=== PATIENT | female | born 1970 | race American Indian/Alaskan Native ===

== ENCOUNTER 2017-04-21 19:32 | Emergency (ER) | payer SELFPAY ==
[2017-04-21 20:22] LABS: BILIRUBIN,URINE NEGATIVE (NEGATIVE)
[2017-04-21 20:25] LABS: BASOPHILS # (AUTO) 0.1 10^3/uL (0.0-0.1); BASOPHILS % (AUTO) 1.2 %; EOSINOPHILS # (AUTO) 0.1 10^3/uL (0.0-0.7); EOSINOPHILS % (AUTO) 0.5 %; HCT - HEMATOCRIT 35.5 % (37.0-47.0); HGB - HEMOGLOBIN 11.5 g/dL (12.0-16.0); LYMPHOCYTES # (AUTO) 2.5 10^3/uL (1.5-3.5); LYMPHOCYTES % (AUTO) 26.3 %; MEAN CORPUSCULAR HEMOGLOBIN 26.3 pg (27.0-31.0); MEAN CORPUSCULAR HGB CONC 32.3 g/dL (32.0-36.0); MEAN CORPUSCULAR VOLUME 81.5 fL (81.0-99.0); MEAN PLATELET VOLUME 6.5 fL (7.9-10.8); MONOCYTES # (AUTO) 0.8 10^3/uL (0.0-1.0); MONOCYTES % (AUTO) 8.7 %; NEUTROPHILS # (AUTO) 5.9 10^3/uL (1.5-6.6); NEUTROPHILS % (AUTO) 63.3 %; RED BLOOD COUNT 4.35 10^6/uL (4.20-5.40); RED CELL DISTRIBUTION WIDTH 18.2 % (12.0-15.0); UNCORRECTED WHITE BLOOD COUNT 9.3 x10^3/uL; WHITE BLOOD COUNT 9.3 x10^3/uL (4.8-10.8)
[2017-04-21 20:33] LABS: UA w/ MICROSCOPIC CHARGE YES
[2017-04-21 20:34] LABS: UR CULTURE IF IND NOT INDICATED; WBC,URINE 0-3 /HPF (0-5)
[2017-04-21 20:42] LABS: ACETAMINOPHEN < 10 ug/mL (10-30); ALBUMIN/GLOBULIN RATIO 1.1 (1.0-2.2); BILIRUBIN,TOTAL 0.2 mg/dL (0.2-1.0); BUN - BLOOD UREA NITROGEN 9 mg/dL (6-20); CALCIUM 8.7 mg/dL (8.5-10.3); CARBON DIOXIDE - CO2 23 mmol/L (21-32); CHLORIDE 104 mmol/L (101-111); CREATININE 0.7 mg/dL (0.4-1.0); GFR - MDRD 90 (>89); GLUCOSE 114 mg/dL (70-100); LIPASE 36 U/L (22-51); POTASSIUM 3.3 mmol/L (3.5-5.0); SALICYLATE < 6.0 mg/dL; SODIUM 140 mmol/L (135-145); TOTAL PROTEIN 7.3 g/dL (6.7-8.2)
--- NOTE | 2017-04-22 06:16 | ED Physician Documentation ---
PD HPI MHE - Stated complaint Stated Complaint: SI - Chief complaint Chief Complaint: MHE - History obtained from History obtained from: Patient - History of Present Illness Primary symptom: Suicidal ideation, Suicide attempt, Self harm - other Timing - onset: Today Contributing factors: Family, Sig other, Substance abuse - ETOH Similar symptoms before: Has not had sx before Recently seen: Not recently seen - Additional information Additional information: Patient is a 46 year old female with no significant past medical history who was brought to the emergency department by police for suicide attempt. Patient attempted to hang herself but it hurt so she stopped. Patient stated that her boyfriend had guns in his house and she would find them. Patient did admit to drinking. Review of Systems Unable to obtain: Intoxicated, Uncooperative PD PAST MEDICAL HISTORY - Past Medical History Past Medical History: Yes Other Past Medical History: patient refused to share - Past Surgical History Past Surgical History: Yes - Social History Does the pt smoke?: No Does the pt drink ETOH?: Yes Does the pt have substance abuse?: No - Immunizations Immunizations are current?: Yes - POLST Patient has POLST: No PD ED PE NORMAL - Vitals Vital signs reviewed: Yes - HEENT HEENT: Atraumatic, PERRL - Neck Neck: Supple, no meningeal sign, Other (no signs of neck trauma) - Cardiac Cardiac: RRR, No murmur - Respiratory Respiratory: No respiratory distress - Abdomen Abdomen: Non distended - Derm Derm: Normal color, Warm and dry - Extremities Extremities: No deformity, No edema - Neuro Neuro: No motor deficit, No sensory deficit Eye Opening: Spontaneous Motor: Obeys Commands Verbal: Oriented GCS Score: 15 PD ED PE EXPANDED - General General: Alert, Other (mildly intoxicated) - Psych Psych: Intoxicated / AOB, Depressed, Suicidal, Combative Results - Vitals Vitals: Vital Signs - 24 hr 04/21/17 04/21/17 04/22/17 19:34 20:24 06:31 Temperature 36.8 C 36.5 C Heart Rate 108 H 88 82 Respiratory 18 16 18 Rate Blood Pressure 130/81 H 146/91 H 120/82 H O2 Saturation 96 98 100 Oxygen O2 Source Room air - Labs Labs: Laboratory Tests 04/21/17 04/21/17 04/21/17 20:15 20:18 20:18 WBC 9.3 RBC 4.35 Hgb 11.5 L Hct 35.5 L MCV 81.5 MCH 26.3 L MCHC 32.3 RDW 18.2 H Plt Count 388 MPV 6.5 L Neut # 5.9 Lymph # 2.5 [facility] # 0.8 Eos # 0.1 Baso # 0.1 Absolute Nucleated RBC 0.00 Nucleated RBC % 0.0 Sodium 140 Potassium 3.3 L Chloride 104 Carbon Dioxide 23 Anion Gap 13.0 BUN 9 Creatinine 0.7 Estimated GFR (MDRD) 90 Glucose 114 H Calcium 8.7 Total Bilirubin 0.2 AST 19 ALT 19 Alkaline Phosphatase 128 H Total Protein 7.3 Albumin 3.8 Globulin 3.5 Albumin/Globulin Ratio 1.1 Lipase 36 TSH HCG, Quant Urine Color YELLOW Urine Clarity HAZY Urine pH 6.0 Ur Specific [place] <=1.005 Urine Protein NEGATIVE Urine Glucose (UA) NEGATIVE Urine Ketones NEGATIVE Urine Occult Blood TRACE-INTA Urine Nitrite POSITIVE H Urine Bilirubin NEGATIVE Urine Urobilinogen 0.2 (NORMAL) Ur Leukocyte Esterase NEGATIVE Urine RBC None Seen Urine WBC 0-3 Ur Squamous Epith Cells MANY Squamous H Urine Bacteria Many H Ur Microscopic Review INDICATED Urine Culture Comments NOT INDICATED Salicylates < 6.0 Urine Opiates Screen NEGATIVE Ur Oxycodone Screen NEGATIVE Urine Methadone Screen NEGATIVE Ur Propoxyphene Screen NEGATIVE Acetaminophen < 10 L Ur Barbiturates Screen NEGATIVE Ur Tricyclics Screen NEGATIVE Ur Phencyclidine Scrn NEGATIVE Ur Amphetamine Screen NEGATIVE U Methamphetamines Scrn NEGATIVE U Benzodiazepines Scrn NEGATIVE Urine Cocaine Screen NEGATIVE U Cannabinoids Screen NEGATIVE Ethyl Alcohol 241.7 04/21/17 04/21/17 04/22/17 20:18 20:18 03:06 WBC RBC Hgb Hct MCV MCH MCHC RDW Plt Count MPV Neut # Lymph # [facility] # Eos # Baso # Absolute Nucleated RBC Nucleated RBC % Sodium Potassium Chloride Carbon Dioxide Anion Gap BUN Creatinine Estimated GFR (MDRD) Glucose Calcium Total Bilirubin AST ALT Alkaline Phosphatase Total Protein Albumin Globulin Albumin/Globulin Ratio Lipase TSH 0.59 HCG, Quant 0.69 Urine Color Urine Clarity Urine pH Ur Specific [place] Urine Protein Urine Glucose (UA) Urine Ketones Urine Occult Blood Urine Nitrite Urine Bilirubin Urine Urobilinogen Ur Leukocyte Esterase Urine RBC Urine WBC Ur Squamous Epith Cells Urine Bacteria Ur Microscopic Review Urine Culture Comments Salicylates Urine Opiates Screen Ur Oxycodone Screen Urine Methadone Screen Ur Propoxyphene Screen Acetaminophen Ur Barbiturates Screen Ur Tricyclics Screen Ur Phencyclidine Scrn Ur Amphetamine Screen U Methamphetamines Scrn U Benzodiazepines Scrn Urine Cocaine Screen U Cannabinoids Screen Ethyl Alcohol < 5.0 PD MEDICAL DECISION MAKING - ED course Complexity details: reviewed old records, reviewed results, re-evaluated patient , considered differential, d/w patient, d/w beauty sales consultant ED course: Patient was seen and examined at bedside. labs were drawn and urine was collected. Patient was found to have elevated etoh. Patient was given time to metabolize the alcohol. [facility] was dispatched and came to evaluate the patient. after they evaluated the patient they were able to make a safety plan. Patient' s boyfriend was able to come get the patient. Patient went home in stable condition. Departure - Departure Disposition: 01 Home, Self Care Clinical Impression: Depression Condition: Good Instructions: ED Stress React Follow-Up: primary,care provider [Other] Comments: It is important that you follow up with the therapists listed today. You should refrain from drinking as it can exacerbate depression. You should return to the emergency department at any time if you have any feelings of hurting yourself or hurting anyone else.
[2017-04-22 06:31] VITALS: BP 120/82
== END 2017-04-22 06:31 | disposition home or self-care (01) ==
LOC: EDBD → ED 19:32
DX: F32.9 Major depressive disorder, single episode, unspecified (principal); R45.851 Suicidal ideations; Z72.89 Other problems related to lifestyle
CPT/HCPCS: 36415; 80053; 80306; 80307; 80320; 80329; 81001; 81003; 83690; 84443; 84702; 85025; 87086; 99283; 99285

== ENCOUNTER 2017-05-29 18:02 | Outpatient (CLI) | payer OTHER | END 2017-05-29 18:03 | disposition home or self-care (01) | LOC: EMS 18:02 | PROVIDERS: ATTEND Surgery | DX: R11.2 Nausea with vomiting, unspecified (principal) | CPT/HCPCS: A0425; A0427 ==

== ENCOUNTER 2017-05-29 18:39 | Emergency (ER) | payer OTHER ==
[2017-05-29 19:20] LABS: BASOPHILS # (AUTO) 0.1 10^3/uL (0.0-0.1); BASOPHILS % (AUTO) 1.7 %; EOSINOPHILS % (AUTO) 0.4 %; HCT - HEMATOCRIT 34.1 % (37.0-47.0); HGB - HEMOGLOBIN 11.1 g/dL (12.0-16.0); LYMPHOCYTES # (AUTO) 1.8 10^3/uL (1.5-3.5); LYMPHOCYTES % (AUTO) 28.1 %; MEAN CORPUSCULAR HEMOGLOBIN 25.4 pg (27.0-31.0); MEAN CORPUSCULAR HGB CONC 32.5 g/dL (32.0-36.0); MEAN CORPUSCULAR VOLUME 78.3 fL (81.0-99.0); MONOCYTES # (AUTO) 0.6 10^3/uL (0.0-1.0); MONOCYTES % (AUTO) 9.7 %; NEUTROPHILS # (AUTO) 3.8 10^3/uL (1.5-6.6); NEUTROPHILS % (AUTO) 60.1 %; RED BLOOD COUNT 4.36 10^6/uL (4.20-5.40); RED CELL DISTRIBUTION WIDTH 17.9 % (12.0-15.0); UNCORRECTED WHITE BLOOD COUNT 6.4 x10^3/uL; WHITE BLOOD COUNT 6.4 x10^3/uL (4.8-10.8)
[2017-05-29 19:29] LABS: BILIRUBIN,URINE NEGATIVE (NEGATIVE); PH,URINE 6.5 PH (5.0-7.5); UA w/ MICROSCOPIC CHARGE YES
[2017-05-29 19:30] LABS: HCG UR QUAL NEGATIVE
[2017-05-29 19:32] LABS: BILIRUBIN,TOTAL 0.3 mg/dL (0.2-1.0); BUN - BLOOD UREA NITROGEN < 5 mg/dL (6-20); CALCIUM 8.1 mg/dL (8.5-10.3); CARBON DIOXIDE - CO2 26 mmol/L (21-32); CHLORIDE 102 mmol/L (101-111); CREATININE 0.4 mg/dL (0.4-1.0); GFR - MDRD 173 (>89); GLUCOSE 104 mg/dL (70-100); LIPASE 37 U/L (22-51); POTASSIUM 3.2 mmol/L (3.5-5.0); SODIUM 140 mmol/L (135-145); TOTAL PROTEIN 7.1 g/dL (6.7-8.2)
[2017-05-29 19:35] LABS: UR CULTURE IF IND INDICATED; WBC,URINE 0-3 /HPF (0-5)
--- NOTE | 2017-05-29 19:36 | ED Physician Documentation ---
PD HPI ABD PAIN - Stated complaint Stated Complaint: ABD PAIN - Chief complaint Chief Complaint: Abd Pain - History obtained from History obtained from: Patient - History of Present Illness Timing - onset: How many days ago (4) Timing - duration: Days (4 days of upper abd pain, nausea, with some episodic vomiting, which has gotten more consistent today. She tried to improve her symptoms with alcohol but felt worse. She does drink fairly regularly the past 2 months (had been sober for several years prior to that).) Timing - details: Gradual onset, Still present (worse today with some diarrhea as well.), Waxing and waning Quality: Cramping, Aching, Pain Location: Epigastric Radiation: Upper back Improved by: Vomiting. No: Laying still Worsened by: Eating. No: Breathing, Palpation Associated symptoms: Nausea, Vomiting, Diarrhea (today). No: Fever, Hematemesis , Melena, Hematochezia, Dysuria Similar symptoms before: Has not had sx before Recently seen: Not recently seen Review of Systems Constitutional: denies: Fever, Chills Nose: denies: Rhinorrhea / runny nose, Congestion Throat: denies: Sore throat Cardiac: denies: Chest pain / pressure, Palpitations Respiratory: denies: Cough GI: reports: Abdominal Pain, Nausea, Vomiting, Diarrhea. denies: Abdominal Swelling, Constipation, Hematemesis, Bloody / black stool : reports: Frequency. denies: Dysuria, Hematuria, Discharge Skin: denies: Rash, Lesions Neurologic: reports: Generalized weakness. denies: Focal weakness, Numbness, Near syncope Psychiatric: reports: Depressed, Anxiety. 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 HEENT: None Psych: None Musculoskeletal: Rheumatoid arthritis Derm: None - Past Surgical History Past Surgical History: Yes - Present Medications Home Medications: Ambulatory Orders Medication Instructions Recorded Confirmed Cephalexin [Keflex] 500 mg PO TID #15 capsule 05/29/17 HYDROcod/ACETAM 5/325 [[place] 5/325] 1 tab PO Q6H PRN #15 tablet 05/29/17 Ondansetron Odt [Zofran] 4 mg TL Q6H PRN #15 tablet 05/29/17 Sucralfate 1 gm PO QID #20 tablet 05/29/17 predniSONE [Deltasone] 5 mg PO DAILY 05/29/17 05/29/17 - Allergies Allergies/Adverse Reactions: Allergies Allergy/AdvReac Type Severity Reaction Status Date / Time No Known Drug Allergies Allergy Verified 05/29/17 18:46 - Social History Does the pt smoke?: No Smoking Status: Never smoker Does the pt drink ETOH?: Yes Does the pt have substance abuse?: No - Immunizations Immunizations are current?: Yes - POLST Patient has POLST: No PD ED PE NORMAL - Vitals Vital signs reviewed: Yes - General General: Alert and oriented X 3 (conversant but some circumferential thought process, slight slurring of speech, c/w some intoxication. ), No acute distress , Well developed/nourished - HEENT HEENT: Atraumatic, PERRL (nonicteric), Pharynx benign - Neck Neck: Supple, no meningeal sign, No adenopathy - Cardiac Cardiac: RRR, No murmur - Respiratory Respiratory: Clear bilaterally - Abdomen Abdomen: Normal bowel sounds, Soft, Non distended, No organomegaly, Other ( Tender upper abd with some local guarding. No general peritoneal signs. ) - Female Female : Deferred - Rectal Rectal: Deferred - Back Back: No CVA TTP - Derm Derm: Normal color, Warm and dry - Extremities Extremities: No deformity, Normal ROM s pain, No calf tenderness / cord - Neuro Neuro: Alert and oriented X 3, No motor deficit, Normal speech - Psych Psych: Normal mood Results - Vitals Vitals: Vital Signs - 24 hr 05/29/17 05/29/17 05/29/17 18:46 20:31 21:03 Temperature 37.0 C Heart Rate 107 H 102 H 90 Respiratory 18 18 18 Rate Blood Pressure 135/98 H 142/93 H 134/83 H O2 Saturation 98 98 99 05/29/17 05/29/17 05/29/17 22:39 23:27 23:30 Temperature 36.5 C 36.6 C Heart Rate 98 97 Respiratory 18 17 Rate Blood Pressure 130/82 H 139/83 H O2 Saturation 96 96 Oxygen O2 Source Room air - Labs Labs: Laboratory Tests 12/05/29/17 05/29/17 19:02 19:02 19:16 WBC 6.4 RBC 4.36 Hgb 11.1 L Hct 34.1 L MCV 78.3 L MCH 25.4 L MCHC 32.5 RDW 17.9 H Plt Count 311 MPV 7.0 L Neut # 3.8 Lymph # 1.8 [facility] # 0.6 Eos # 0.0 Baso # 0.1 Absolute Nucleated RBC 0.00 Nucleated RBC % 0.0 Sodium 140 Potassium 3.2 L Chloride 102 Carbon Dioxide 26 Anion Gap 12.0 BUN < 5 L Creatinine 0.4 Estimated GFR (MDRD) 173 Glucose 104 H Calcium 8.1 L Total Bilirubin 0.3 AST 27 ALT 25 Alkaline Phosphatase 175 H Total Protein 7.1 Albumin 3.6 Globulin 3.5 Albumin/Globulin Ratio 1.0 Lipase 37 Urine Color YELLOW Urine Clarity HAZY Urine pH 6.5 Ur Specific [place] <=1.005 Urine Protein NEGATIVE Urine Glucose (UA) NEGATIVE Urine Ketones NEGATIVE Urine Occult Blood LARGE H Urine Nitrite NEGATIVE Urine Bilirubin NEGATIVE Urine Urobilinogen 0.2 (NORMAL) Ur Leukocyte Esterase TRACE H Urine RBC 11-25 H Urine WBC 0-3 Ur Squamous Epith Cells FEW Squamous Urine Bacteria Moderate H Ur Microscopic Review INDICATED Urine Culture Comments INDICATED Urine HCG, Qual NEGATIVE Ethyl Alcohol 05/29/17 20:16 WBC RBC Hgb Hct MCV MCH MCHC RDW Plt Count MPV Neut # Lymph # [facility] # Eos # Baso # Absolute Nucleated RBC Nucleated RBC % Sodium Potassium Chloride Carbon Dioxide Anion Gap BUN Creatinine Estimated GFR (MDRD) Glucose Calcium Total Bilirubin AST ALT Alkaline Phosphatase Total Protein Albumin Globulin Albumin/Globulin Ratio Lipase Urine Color Urine Clarity Urine pH Ur Specific [place] Urine Protein Urine Glucose (UA) Urine Ketones Urine Occult Blood Urine Nitrite Urine Bilirubin Urine Urobilinogen Ur Leukocyte Esterase Urine RBC Urine WBC Ur Squamous Epith Cells Urine Bacteria Ur Microscopic Review Urine Culture Comments Urine HCG, Qual Ethyl Alcohol 228.7 - Rads (name of study) abd CT Radiology: Prelim report reviewed (hepatic steatosis noted, otherwise unremarkable abd CT.) PD MEDICAL DECISION MAKING - ED course Complexity details: reviewed results, re-evaluated patient (improved with meds and GI cocktail. Presume gastritis. Still with some upper abd tenderness. Labs are reasonable, no pancreatitis. Can get CT to ensure no obvious perforation, etc. ), considered differential, d/w patient Departure - Departure Disposition: Home, Self Care Clinical Impression: Abdominal pain Qualifiers: Abdominal location: epigastric Qualified Code(s): R10.13 - Epigastric pain Vomiting Qualifiers: Vomiting type: unspecified Vomiting Intractability: intractable Nausea presence : with nausea Qualified Code(s): R11.2 - Nausea with vomiting, unspecified Gastritis Qualifiers: Gastritis type: unspecified gastritis Chronicity: acute Gastritis bleeding: without bleeding Qualified Code(s): K29.00 - Acute gastritis without bleeding UTI (urinary tract infection) Qualifiers: Urinary tract infection type: acute cystitis Hematuria presence: without hematuria Qualified Code(s): N30.00 - Acute cystitis without hematuria Condition: Stable Record reviewed to determine appropriate education?: Yes Instructions: ED Gastritis, ED Nausea Vomiting Follow-Up: [facility] [Provider Group] [facility] [Provider Group] Prescriptions: Cephalexin [Keflex] 500 mg PO TID #15 capsule HYDROcod/ACETAM 5/325 [[place] 5/325] 1 tab PO Q6H PRN #15 tablet PRN Reason: Pain Ondansetron Odt [Zofran] 4 mg TL Q6H PRN #15 tablet PRN Reason: Nausea / Vomiting Sucralfate 1 gm PO QID #20 tablet Comments: Drink lots of fluids to stay hydrated. Zofran if needed for nausea. Tylenol or Hydrocodone as needed for pains. Continue your Omeprazole you recently started. Add Sucralfate to coat the stomach for the next 5 days. This will help protect the stomach while giving the Omeprazole more time to become effective and help. Avoid alcohol. Recheck if not improved over the next few days. There is a suggestion of a bladder infection on your urine test and we gave dose of antibiotics here. Add Keflex for this for 5 days. Discharge Date/Time: 05/29/17 23:31
[2017-05-29] MEDS ORDERED: SODIUM CHLORIDE 0.9% 1,000 ML IV ONE (20:03)
[2017-05-29] MEDS ORDERED: MAG HYDROX/AL HYDROX/SIMETH 30 ML UDC PO STA (20:04)
[2017-05-29] MEDS ORDERED: FAMOTIDINE 20 MG/50 ML 50 ML IV ONE (20:04)
[2017-05-29] MEDS ORDERED: HYDROmorphone 1 MG/ML SYRINGE IVP STA (20:04)
[2017-05-29] MEDS ORDERED: LIDOCAINE VISCOUS 2% 15 ML UDC MM STA (20:04)
[2017-05-29] MEDS ORDERED: ONDANSETRON 4 MG/2 ML VIAL IVP STA (20:05)
[2017-05-29] MEDS ORDERED: SUCRALFATE 1 GM/10 ML UDC PO STA (21:21)
[2017-05-29] MEDS ORDERED: ACETAMINOPHEN 325 MG TABLET PO STA (21:21)
[2017-05-29] MEDS ORDERED: cefTRIAXone 1 GM in SODIUM CHLORIDE 0.9% MINIBAG 100 ML IV STA (21:46)
[2017-05-29] MEDS ORDERED: IOPAMIDOL-300 100 ML VIAL ONE (22:03)
[2017-05-29] MEDS ORDERED: IOPAMIDOL-300 100 ML VIAL IVP ONE (22:17)
--- NOTE | 2017-05-29 22:46 | CT Preliminary Report ---
Exam: CT ABDOMEN/PELVIS W/ IMPRESSION: Hepatic steatosis noted, otherwise unremarkable abdomen and pelvis CT. [facility] SITE ID: [id number]
--- NOTE | 2017-05-29 22:48 | CT Report ---
EXAM: CT ABDOMEN AND PELVIS EXAM DATE: 05/29/2017 10:25 PM. CLINICAL HISTORY: Upper abdomen pain. COMPARISONS: None. TECHNIQUE: Routine helical CT imaging was performed through the abdomen and pelvis. IV contrast: 100 cc of Isovue-300. Enteric contrast: No. Reconstructions: Coronal and sagittal. In accordance with CT protocol optimization, one or more of the following dose reduction techniques w ere utilized for this exam: automated exposure control, adjustment of mA and/or KV based on patient s ize, or use of iterative reconstructive technique. FINDINGS: Lung Bases: Unremarkable. Liver: Diffuse low-density, otherwise unremarkable. Gallbladder/Bile Ducts: Unremarkable. Spleen: Normal. Pancreas: Normal. Adrenal Glands: Normal. Kidneys: Multiple bilateral subcentimeter low densities, likely cysts, otherwise unremarkable. Peritoneal Cavity/Bowel: Normal. No free fluid, free air or adenopathy. No masses or acute inflammato ry process. The appendix is well visualized and normal. Pelvic Organs: Normal. The bladder and visualized pelvic organs are within normal limits. Vasculature: No aneurysms or other significant abnormality. Bones: No significant abnormality. Other: None. IMPRESSION: Hepatic steatosis noted, otherwise unremarkable abdomen and pelvis CT. [facility] Referring Provider Line: [phone] SITE ID: [id number]
[2017-05-29] MEDS ORDERED: ONDANSETRON ODT 4 MG Prepack 2 TL PRN (23:00)
[2017-05-29] MEDS ORDERED: HYDROcod/ACET 5/325 Prepack 6 PO STA (23:00)
[2017-05-29 23:27] VITALS: BP 139/83
== END 2017-05-29 23:31 | disposition home or self-care (01) ==
LOC: EDUNIT# → ED 18:39
DX: K29.00 Acute gastritis without bleeding (principal); N30.00 Acute cystitis without hematuria; R10.13 Epigastric pain; R11.2 Nausea with vomiting, unspecified; M06.9 Rheumatoid arthritis, unspecified
CPT/HCPCS: 36415; 74177; 80053; 80320; 81001; 81025; 83690; 85025; 87086; 87181; 96365; 96367; 96375; 99284; A9270; J1170; Q9967; 81003

== ENCOUNTER 2017-12-07 17:43 | Emergency (ER) | payer MEDICAID, OTHER ==
[2017-12-07 18:25] VITALS: BP 133/118
--- NOTE | 2017-12-07 20:27 | ED Physician Documentation ---
PD HPI LOWER EXT INJURY - Stated complaint Stated Complaint: RT SIMON LAC - Chief complaint Chief Complaint: Laceration - History obtained from History obtained from: Patient - History of Present Illness PD HPI LOW EXT INJURY LOCATION: Right, Lower leg Type of injury: Blunt / blow (she accidentally struck her simon with hoe this morning doing some yardwork.) Where injury occurred: Home Timing - onset: Today (this morning) Timing - details: Abrupt onset, Still present (bleeding at times despite wrap/ dressing.) Associated symptoms: Swelling, Other (bleeding at times still.). 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 HEENT: None Psych: None Musculoskeletal: Rheumatoid arthritis Derm: None - Past Surgical History Past Surgical History: Yes - Present Medications Home Medications: Ambulatory Orders Medication Instructions Recorded Confirmed Cephalexin [Keflex] 500 mg PO TID #15 capsule 05/29/17 HYDROcod/ACETAM 5/325 [[place] 5/325] 1 tab PO Q6H PRN #15 tablet 05/29/17 Ondansetron Odt [Zofran] 4 mg TL Q6H PRN #15 tablet 05/29/17 Sucralfate 1 gm PO QID #20 tablet 05/29/17 predniSONE [Deltasone] 5 mg PO DAILY 05/29/17 05/29/17 - Allergies Allergies/Adverse Reactions: Allergies Allergy/AdvReac Type Severity Reaction Status Date / Time No Known Drug Allergies Allergy Verified 12/07/17 18:18 - Social History Does the pt smoke?: No Smoking Status: Never smoker Does the pt drink ETOH?: Yes Does the pt have substance abuse?: No - Immunizations Immunizations are current?: Yes - POLST Patient has POLST: No PD ED PE NORMAL - Vitals Vital signs reviewed: Yes - General General: Alert and oriented X 3, No acute distress, Well developed/nourished - Derm Derm: Normal color, Warm and dry - Extremities Extremities: Other (right lower leg anteriorly with v shaped laceration 3 cm in length, exposing the skin in the middle of the laceration, exposing fatty tissue but no FB nor deep tissues involved. Small venous bleeding present when dressing removed. ) - Neuro Neuro: Alert and oriented X 3, No motor deficit, No sensory deficit, Normal speech Results - Vitals Vitals: Oxygen O2 Source Room air Procedures - Laceration (location) right anterior lower leg Length in cm: 3 Wound type: Curved, Into subcut fat, Clean. No: Into muscle Neurovascular status: Sensory intact, Motor intact, Vascular intact Tendon involvement: No: Tendon Injury Anesthesia: Lidocaine 1% with epi Wound Preparation: Irrigated copiously NS Skin layer closure: Nylon, Interrupted, Size #-0 - enter number (4) Other: Patient tolerated well, No complications, Neurovascular intact, Dressing applied, Tetanus UTD Complexity: Simple PD MEDICAL DECISION MAKING - ED course Complexity details: considered differential (overly optimistic to think wound would stay closed with glue/steri-strips, so went with suturing. Patient okay with that. ), d/w patient - Sepsis Event Vital Signs: Oxygen O2 Source Room air Departure - Departure Disposition: 01 Home, Self Care Clinical Impression: Laceration of lower leg Qualifiers: Encounter type: initial encounter Laterality: right Qualified Code(s): S81.811A - Laceration without foreign body, right lower leg, initial encounter Condition: Stable Record reviewed to determine appropriate education?: Yes Instructions: ED Laceration All Follow-Up: Abelardo Johansen MD [Primary Care Provider] - Comments: It is okay to wash and shower. Clean off the wound twice a day with soap and water, or peroxide and water. Apply some antibiotic ointment to it to keep it moist. Also to watch for signs of infection such as purulence, redness or increasing pain. Return to your primary care or the ER at the specified time for suture removal. Tylenol or ibuprofen if needed for pain. Suture removal 8- 10 days. Discharge Date/Time: 12/07/17 21:10
[2017-12-07] MEDS ORDERED: IBUPROFEN 600 MG TABLET PO STA (20:52)
== END 2017-12-07 21:10 | disposition home or self-care (01) ==
LOC: ED 17:43
DX: S81.811A Laceration without foreign body, right lower leg, initial encounter (principal); W27.1XXA Contact with garden tool, initial encounter; Y93.H2 Activity, gardening and landscaping; Y92.009 Unspecified place in unspecified non-institutional (private) residence as the place of occurrence of the external cause
CPT/HCPCS: 12002; 99282; 99283

== ENCOUNTER 2017-12-29 17:55 | Emergency (ER) | payer MEDICAID ==
[2017-12-29 18:19] LABS: MUDS CUTOFF CONCENTRATIONS CUTOFF CONC BELOW:
--- NOTE | 2017-12-29 18:21 | ED Physician Documentation ---
PD HPI MHE - Stated complaint Stated Complaint: SI - Chief complaint Chief Complaint: MHE - History obtained from History obtained from: Patient - History of Present Illness Primary symptom: Suicidal ideation. No: Suicide attempt (she had told her son that she was going to drown herself or hang herself. found her clothed at home, but the bathtub was fully filled.) Contributing factors: Sig other (she states she has been stressed that her boyfriend is working overnight shifts all week at his job and she has felt lonely.), Substance abuse - ETOH. No: Substance abuse - drugs Similar symptoms before: Diagnosis (depression and anxiety, suicidal ideation in the past.) Recently seen: Not recently seen Review of Systems Constitutional: denies: Fever Nose: denies: Rhinorrhea / runny nose, Congestion Throat: denies: Sore throat Respiratory: denies: Cough GI: denies: Vomiting, Diarrhea Skin: denies: Abrasion (s), Laceration (s) Neurologic: denies: Headache Psychiatric: reports: Depressed, Suicidal, Anxiety. 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 : None HEENT: None Psych: Depression, Anxiety Musculoskeletal: Rheumatoid arthritis Derm: None - Past Surgical History Past Surgical History: Yes - Present Medications Home Medications: Ambulatory Orders Medication Instructions Recorded Confirmed Cephalexin [Keflex] 500 mg PO TID #15 capsule 05/29/17 HYDROcod/ACETAM 5/325 [[place] 5/325] 1 tab PO Q6H PRN #15 tablet 05/29/17 Ondansetron Odt [Zofran] 4 mg TL Q6H PRN #15 tablet 05/29/17 Sucralfate 1 gm PO QID #20 tablet 05/29/17 predniSONE [Deltasone] 5 mg PO DAILY 05/29/17 05/29/17 - Allergies Allergies/Adverse Reactions: Allergies Allergy/AdvReac Type Severity Reaction Status Date / Time No Known Drug Allergies Allergy Verified 12/29/17 18:13 - Living Situation Living Situation: reports: With spouse/s.o. Living Arrangement: reports: At home - Social History Does the pt smoke?: No Smoking Status: Never smoker Does the pt drink ETOH?: Yes Does the pt have substance abuse?: No - Family History Family history: reports: Non contributory - Immunizations Immunizations are current?: Yes - POLST Patient has POLST: No PD ED PE NORMAL - Vitals Vital signs reviewed: Yes - General General: Alert and oriented X 3, Well developed/nourished, Other (somewhat tearful at times. Otherwise conversant and interacts. States she had felt like wanting to hurt herself at home. Feeling less of the desire as she is here in the ER. ) - HEENT HEENT: Atraumatic, Pharynx benign - Neck Neck: Supple, no meningeal sign, No adenopathy - Cardiac Cardiac: RRR, No murmur - Respiratory Respiratory: Clear bilaterally - Abdomen Abdomen: Soft, Non tender - Derm Derm: Normal color, Warm and dry - Extremities Extremities: No tenderness to palpate, Normal ROM s pain - Neuro Neuro: Alert and oriented X 3, No motor deficit, Other (mild slurring c/w intoxication) Results - Vitals Vitals: Vital Signs - 24 hr 12/29/17 18:00 Temperature 37.5 C Heart Rate 110 H Respiratory 16 Rate Blood Pressure 119/79 O2 Saturation 96 Oxygen O2 Source Room air - Labs Labs: Laboratory Tests 12/29/17 12/29/17 12/29/17 18:10 18:31 18:31 WBC 4.7 L RBC 4.38 Hgb 11.5 L Hct 36.1 L MCV 82.3 MCH 26.2 L MCHC 31.8 L RDW 20.4 H Plt Count 343 MPV 6.4 L Neut # (Auto) 2.5 Lymph # (Auto) 1.8 [place] # (Auto) 0.4 Eos # (Auto) 0.0 Baso # (Auto) 0.1 Absolute Nucleated RBC 0.00 Nucleated RBC % 0.1 Manual Slide Review Indicated Platelet Estimate NORMAL (130-450,000) Platelet Morphology NORMAL APPEARANCE RBC Morph Micro Appear 2+ ANISOCYTOSIS Sodium 142 Potassium 3.6 Chloride 106 Carbon Dioxide 25 Anion Gap 11.0 BUN 6 Creatinine 0.5 Estimated GFR (MDRD) 133 Glucose 104 H Calcium 8.4 L Total Bilirubin 0.4 AST 30 ALT 20 Alkaline Phosphatase 115 Total Protein 7.7 Albumin 4.2 Globulin 3.5 Albumin/Globulin Ratio 1.2 Lipase 43 TSH Urine Color YELLOW Urine Clarity SL. CLOUDY Urine pH 6.5 Ur Specific [place] <=1.005 Urine Protein TRACE Urine Glucose (UA) NEGATIVE Urine Ketones NEGATIVE Urine Occult Blood MODERATE H Urine Nitrite POSITIVE H Urine Bilirubin NEGATIVE Urine Urobilinogen 0.2 (NORMAL) Ur Leukocyte Esterase SMALL H Urine RBC 11-25 H Urine WBC 11-25 H Ur Squamous Epith Cells MANY Squamous H Urine Bacteria Many H Ur Microscopic Review INDICATED Urine Culture Comments NOT INDICATED Salicylates < 6.0 Urine Opiates Screen NEGATIVE Ur Oxycodone Screen NEGATIVE Urine Methadone Screen NEGATIVE Ur Propoxyphene Screen NEGATIVE Acetaminophen < 10 L Ur Barbiturates Screen NEGATIVE Ur Tricyclics Screen NEGATIVE Ur Phencyclidine Scrn NEGATIVE Ur Amphetamine Screen NEGATIVE U Methamphetamines Scrn NEGATIVE U Benzodiazepines Scrn NEGATIVE Urine Cocaine Screen NEGATIVE U Cannabinoids Screen NEGATIVE Ethyl Alcohol 361.9 12/29/17 18:31 WBC RBC Hgb Hct MCV MCH MCHC RDW Plt Count MPV Neut # (Auto) Lymph # (Auto) [place] # (Auto) Eos # (Auto) Baso # (Auto) Absolute Nucleated RBC Nucleated RBC % Manual Slide Review Platelet Estimate Platelet Morphology RBC Morph Micro Appear Sodium Potassium Chloride Carbon Dioxide Anion Gap BUN Creatinine Estimated GFR (MDRD) Glucose Calcium Total Bilirubin AST ALT Alkaline Phosphatase Total Protein Albumin Globulin Albumin/Globulin Ratio Lipase TSH 0.85 Urine Color Urine Clarity Urine pH Ur Specific [place] Urine Protein Urine Glucose (UA) Urine Ketones Urine Occult Blood Urine Nitrite Urine Bilirubin Urine Urobilinogen Ur Leukocyte Esterase Urine RBC Urine WBC Ur Squamous Epith Cells Urine Bacteria Ur Microscopic Review Urine Culture Comments Salicylates Urine Opiates Screen Ur Oxycodone Screen Urine Methadone Screen Ur Propoxyphene Screen Acetaminophen Ur Barbiturates Screen Ur Tricyclics Screen Ur Phencyclidine Scrn Ur Amphetamine Screen U Methamphetamines Scrn U Benzodiazepines Scrn Urine Cocaine Screen U Cannabinoids Screen Ethyl Alcohol PD MEDICAL DECISION MAKING - ED course Complexity details: considered differential (she is intoxicated which would certainly disinhibit her behaviors. Concern for potential self harm while still intoxicated. Will need to have her sober and reassess. Given the [place] statement and hold, will presumedly want to have SW or [facility] assess her. ), d/w patient - Sepsis Event Vital Signs: Vital Signs - 24 hr 12/29/17 18:00 Temperature 37.5 C Heart Rate 110 H Respiratory 16 Rate Blood Pressure 119/79 O2 Saturation 96 Oxygen O2 Source Room air Departure - Departure Clinical Impression: Suicidal ideation, Suicidal behavior without attempted self-injury Alcohol intoxication Qualifiers: Complication of substance-induced condition: uncomplicated Qualified Code(s): F10.920 - Alcohol use, unspecified with intoxication, uncomplicated Condition: Stable Record reviewed to determine appropriate education?: Yes
[2017-12-29 18:26] LABS: BILIRUBIN,URINE NEGATIVE (NEGATIVE); GLUCOSE, URINE (UA) NEGATIVE (NEGATIVE); KETONES,URINE (UA) NEGATIVE (NEGATIVE); LEUKOCYTE ESTERASE, URINE SMALL (NEGATIVE); NITRITE,URINE POSITIVE (NEGATIVE); OCCULT BLOOD,URINE MODERATE (NEGATIVE); PH,URINE 6.5 PH (5.0-7.5); PROTEIN,URINE TRACE mg/dL (NEGATIVE); UROBILINOGEN,URINE 0.2 (NORMAL) E.U./dL (NORMAL)
[2017-12-29 18:34] LABS: CLARITY,URINE SL. CLOUDY (CLEAR)
[2017-12-29 18:37] LABS: AMPHETAMINE SCREEN,URINE NEGATIVE (NEGATIVE); BENZODIAZEPINES SCREEN, URINE NEGATIVE (NEGATIVE); COCAINE SCREEN URINE NEGATIVE (NEGATIVE); METHADONE SCREEN, URINE NEGATIVE (NEGATIVE); METHAMPHETAMINES SCREEN, URINE NEGATIVE (NEGATIVE); OPIATE SCREEN, URINE NEGATIVE (NEGATIVE); OXYCODONE SCREEN, URINE NEGATIVE (NEGATIVE); PROPOXYPHENE SCREEN, URINE NEGATIVE (NEGATIVE); TRICYCLIC ANTIDEPRESSANT,URINE NEGATIVE (NEGATIVE)
[2017-12-29 18:53] LABS: ALBUMIN 4.2 g/dL (3.2-5.5); ALBUMIN/GLOBULIN RATIO 1.2 (1.0-2.2); ALKALINE PHOSPHATASE 115 IU/L (42-121); ALT ALANINE AMINOTRANSFERASE 20 IU/L (10-60); AST ASPARTATE AMINOTRANSFERASE 30 IU/L (10-42); BILIRUBIN,TOTAL 0.4 mg/dL (0.2-1.0); BUN - BLOOD UREA NITROGEN 6 mg/dL (6-20); CALCIUM 8.4 mg/dL (8.5-10.3); CARBON DIOXIDE - CO2 25 mmol/L (21-32); CHLORIDE 106 mmol/L (101-111); CREATININE 0.5 mg/dL (0.4-1.0); GFR - MDRD 133 (>89); GLUCOSE 104 mg/dL (70-100); LIPASE 43 U/L (22-51); SALICYLATE < 6.0 mg/dL; SODIUM 142 mmol/L (135-145); TOTAL PROTEIN 7.7 g/dL (6.7-8.2)
[2017-12-29 18:56] LABS: ACETAMINOPHEN < 10 ug/mL (10-30)
[2017-12-29 19:03] LABS: BACTERIA,URINE Many /HPF (None Seen); SQUAMOUS EPITHELIAL CELL,UR MANY Squamous (<= Few)
[2017-12-29 19:04] LABS: BASOPHILS # (AUTO) 0.1 10^3/uL (0.0-0.1); BASOPHILS % (AUTO) 1.5 %; EOSINOPHILS % (AUTO) 0.8 %; HGB - HEMOGLOBIN 11.5 g/dL (12.0-16.0); LYMPHOCYTES # (AUTO) 1.8 10^3/uL (1.5-3.5); LYMPHOCYTES % (AUTO) 37.3 %; MEAN CORPUSCULAR HEMOGLOBIN 26.2 pg (27.0-31.0); MEAN CORPUSCULAR HGB CONC 31.8 g/dL (32.0-36.0); MEAN CORPUSCULAR VOLUME 82.3 fL (81.0-99.0); MEAN PLATELET VOLUME 6.4 fL (7.9-10.8); MONOCYTES # (AUTO) 0.4 10^3/uL (0.0-1.0); MONOCYTES % (AUTO) 7.9 %; NEUTROPHILS # (AUTO) 2.5 10^3/uL (1.5-6.6); NEUTROPHILS % (AUTO) 52.5 %; PLT - PLATELET COUNT 343 10^3/uL (130-450); RED BLOOD COUNT 4.38 10^6/uL (4.20-5.40); RED CELL DISTRIBUTION WIDTH 20.4 % (12.0-15.0); WHITE BLOOD COUNT 4.7 x10^3/uL (4.8-10.8)
[2017-12-29 19:54] LABS: PLATELET ESTIMATE, MANUAL NORMAL (130-450,000) (NORMAL); PLATELET MORPHOLOGY NORMAL APPEARANCE (NORMAL); RBC MORPHOLOGY (MULTIPLE) 2+ ANISOCYTOSIS (NORMAL)
[2017-12-30] MEDS ORDERED: PROMETHAZINE 25 MG/1 ML VIAL IM STA (07:25)
[2017-12-30] MEDS ORDERED: LORazepam 2 MG/ML VIAL IM STA (07:25)
--- NOTE | 2017-12-30 07:32 | ED Physician Documentation ---
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 HEENT: None Psych: Depression, Anxiety Musculoskeletal: Rheumatoid arthritis Derm: None - Past Surgical History Past Surgical History: Yes - Present Medications Home Medications: Ambulatory Orders Medication Instructions Recorded Confirmed Cephalexin [Keflex] 500 mg PO TID #15 capsule 05/29/17 HYDROcod/ACETAM 5/325 [[place] 5/325] 1 tab PO Q6H PRN #15 tablet 05/29/17 Ondansetron Odt [Zofran] 4 mg TL Q6H PRN #15 tablet 05/29/17 Sucralfate 1 gm PO QID #20 tablet 05/29/17 predniSONE [Deltasone] 5 mg PO DAILY 05/29/17 05/29/17 Lorazepam [Ativan] 1 mg PO Q4H PRN #4 tablet 12/30/17 Ondansetron Odt [Zofran] 4 mg TL Q6H PRN #10 tablet 12/30/17 - Allergies Allergies/Adverse Reactions: Allergies Allergy/AdvReac Type Severity Reaction Status Date / Time No Known Drug Allergies Allergy Verified 12/29/17 18:13 - Social History Does the pt smoke?: No Smoking Status: Never smoker Does the pt drink ETOH?: Yes Does the pt have substance abuse?: No - Immunizations Immunizations are current?: Yes - POLST Patient has POLST: No Results - Vitals Vitals: Vital Signs - 24 hr 12/29/17 12/29/17 12/30/17 18:00 23:12 07:34 Temperature 37.5 C 36.8 C 36.6 C Heart Rate 110 H 116 H 82 Respiratory 16 18 15 Rate Blood Pressure 119/79 127/88 H 121/74 O2 Saturation 96 98 98 Oxygen O2 Source Room air - Labs Labs: Laboratory Tests 12/29/17 12/29/17 12/29/17 18:10 18:31 18:31 WBC 4.7 L RBC 4.38 Hgb 11.5 L Hct 36.1 L MCV 82.3 MCH 26.2 L MCHC 31.8 L RDW 20.4 H Plt Count 343 MPV 6.4 L Neut # (Auto) 2.5 Lymph # (Auto) 1.8 [place] # (Auto) 0.4 Eos # (Auto) 0.0 Baso # (Auto) 0.1 Absolute Nucleated RBC 0.00 Nucleated RBC % 0.1 Manual Slide Review Indicated Platelet Estimate NORMAL (130-450,000) Platelet Morphology NORMAL APPEARANCE RBC Morph Micro Appear 2+ ANISOCYTOSIS Sodium 142 Potassium 3.6 Chloride 106 Carbon Dioxide 25 Anion Gap 11.0 BUN 6 Creatinine 0.5 Estimated GFR (MDRD) 133 Glucose 104 H Calcium 8.4 L Total Bilirubin 0.4 AST 30 ALT 20 Alkaline Phosphatase 115 Total Protein 7.7 Albumin 4.2 Globulin 3.5 Albumin/Globulin Ratio 1.2 Lipase 43 TSH Urine Color YELLOW Urine Clarity SL. CLOUDY Urine pH 6.5 Ur Specific [place] <=1.005 Urine Protein TRACE Urine Glucose (UA) NEGATIVE Urine Ketones NEGATIVE Urine Occult Blood MODERATE H Urine Nitrite POSITIVE H Urine Bilirubin NEGATIVE Urine Urobilinogen 0.2 (NORMAL) Ur Leukocyte Esterase SMALL H Urine RBC 11-25 H Urine WBC 11-25 H Ur Squamous Epith Cells MANY Squamous H Urine Bacteria Many H Ur Microscopic Review INDICATED Urine Culture Comments NOT INDICATED Salicylates < 6.0 Urine Opiates Screen NEGATIVE Ur Oxycodone Screen NEGATIVE Urine Methadone Screen NEGATIVE Ur Propoxyphene Screen NEGATIVE Acetaminophen < 10 L Ur Barbiturates Screen NEGATIVE Ur Tricyclics Screen NEGATIVE Ur Phencyclidine Scrn NEGATIVE Ur Amphetamine Screen NEGATIVE U Methamphetamines Scrn NEGATIVE U Benzodiazepines Scrn NEGATIVE Urine Cocaine Screen NEGATIVE U Cannabinoids Screen NEGATIVE Ethyl Alcohol 361.9 12/29/17 12/30/17 18:31 06:15 WBC RBC Hgb Hct MCV MCH MCHC RDW Plt Count MPV Neut # (Auto) Lymph # (Auto) [place] # (Auto) Eos # (Auto) Baso # (Auto) Absolute Nucleated RBC Nucleated RBC % Manual Slide Review Platelet Estimate Platelet Morphology RBC Morph Micro Appear Sodium Potassium Chloride Carbon Dioxide Anion Gap BUN Creatinine Estimated GFR (MDRD) Glucose Calcium Total Bilirubin AST ALT Alkaline Phosphatase Total Protein Albumin Globulin Albumin/Globulin Ratio Lipase TSH 0.85 Urine Color Urine Clarity Urine pH Ur Specific [place] Urine Protein Urine Glucose (UA) Urine Ketones Urine Occult Blood Urine Nitrite Urine Bilirubin Urine Urobilinogen Ur Leukocyte Esterase Urine RBC Urine WBC Ur Squamous Epith Cells Urine Bacteria Ur Microscopic Review Urine Culture Comments Salicylates Urine Opiates Screen Ur Oxycodone Screen Urine Methadone Screen Ur Propoxyphene Screen Acetaminophen Ur Barbiturates Screen Ur Tricyclics Screen Ur Phencyclidine Scrn Ur Amphetamine Screen U Methamphetamines Scrn U Benzodiazepines Scrn Urine Cocaine Screen U Cannabinoids Screen Ethyl Alcohol < 5.0 PD MEDICAL DECISION MAKING - ED course ED course: assumed care 7 AM 12/30 47 f presented last night heavily intoxicated with suicidal ideations and plan to drown herself eloped and was brought back by police and made invol pt remained in ED overnight pending sobriety so she could have her MHE he BA this AM was < 5 I went to see pt she is is delfina withdrawal, tremulous retching and tachy on exam she states she no longer feels suicidal she denies any self harm other than excessive drinking denies HI denies hallucinations states she has been admitted for DTs before has been through detox before started drinking again several m ago recently has been drinking a fifth of vodka per day denies recent fever cough or other illness exam no VS since yesterday but tachy on my exam awake alert oriented cooperative very tremulous tachy but reg CTAB denies present HI SI ordered ativan and phenergan awaiting [facility] eval pt seen by [facility] - no longer suicidal, safe for dc, SW provided resources for counseling, also SW offered detox and pt declined, she is active wdrawal, I will rx ativan 1 mg # 4 but not a full librium taper 2/2 concern pt might use to harm herself if sx return and or drink more EtOH while taking, [facility] provided outpt resources - Sepsis Event Vital Signs: Vital Signs - 24 hr 12/29/17 12/29/17 12/30/17 18:00 23:12 07:34 Temperature 37.5 C 36.8 C 36.6 C Heart Rate 110 H 116 H 82 Respiratory 16 18 15 Rate Blood Pressure 119/79 127/88 H 121/74 O2 Saturation 96 98 98 Oxygen O2 Source Room air Departure - Departure Disposition: 01 Home, Self Care Clinical Impression: Suicidal ideation, Suicidal behavior without attempted self-injury Alcohol intoxication Qualifiers: Complication of substance-induced condition: uncomplicated Qualified Code(s): F10.920 - Alcohol use, unspecified with intoxication, uncomplicated Alcohol withdrawal Qualifiers: Complication of substance-induced condition: uncomplicated Qualified Code(s): F10.230 - Alcohol dependence with withdrawal, uncomplicated Condition: Stable Instructions: ED Withdrawal Alcohol, ED Alcohol Intoxication, ED Depression Prescriptions: Lorazepam [Ativan] 1 mg PO Q4H PRN #4 tablet PRN Reason: withdrawal from alcohol Ondansetron Odt [Zofran] 4 mg TL Q6H PRN #10 tablet PRN Reason: Nausea / Vomiting Comments: Please follow up for mental health counseling and alcohol treatment - our geriatric social worker provided resources for you Also I have prescribed ativan and zofran to help with your withdrawal symptoms - ativan can cause sedation so please do not drive or drink alcohol or take other sedating medications with this medication Forms: Activity restrictions
[2017-12-30 07:41] VITALS: BP 121/74
== END 2017-12-30 10:15 | disposition home or self-care (01) ==
LOC: ED 17:55
DX: R45.851 Suicidal ideations (principal); F10.129 Alcohol abuse with intoxication, unspecified; F41.9 Anxiety disorder, unspecified
CPT/HCPCS: 36415; 80053; 80306; 80307; 80320; 80329; 81001; 83690; 84443; 85025; 96372; 99283; 99284; J2060; 81003; 87086

== ENCOUNTER 2018-02-11 19:38 | Outpatient (CLI) | payer MEDICAID | END 2018-02-11 19:39 | disposition critical access hospital (66) | LOC: EMS 19:38 | PROVIDERS: ATTEND Surgery | DX: R53.1 Weakness (principal); R11.0 Nausea | CPT/HCPCS: A0425; A0429; A0999 ==

== ENCOUNTER 2018-02-11 20:14 | Emergency (ER) | payer MEDICAID ==
[2018-02-11 20:35] LABS: BASOPHILS # (AUTO) 0.1 10^3/uL (0.0-0.1); BASOPHILS % (AUTO) 1.4 %; EOSINOPHILS % (AUTO) 0.1 %; HGB - HEMOGLOBIN 10.2 g/dL (12.0-16.0); LYMPHOCYTES # (AUTO) 1.3 10^3/uL (1.5-3.5); LYMPHOCYTES % (AUTO) 25.2 %; MEAN CORPUSCULAR HEMOGLOBIN 24.3 pg (27.0-31.0); MEAN CORPUSCULAR HGB CONC 31.6 g/dL (32.0-36.0); MEAN CORPUSCULAR VOLUME 76.8 fL (81.0-99.0); MEAN PLATELET VOLUME 5.9 fL (7.9-10.8); MONOCYTES # (AUTO) 0.3 10^3/uL (0.0-1.0); MONOCYTES % (AUTO) 6.7 %; NEUTROPHILS # (AUTO) 3.3 10^3/uL (1.5-6.6); NEUTROPHILS % (AUTO) 66.6 %; PLT - PLATELET COUNT 272 10^3/uL (130-450); RED BLOOD COUNT 4.19 10^6/uL (4.20-5.40); RED CELL DISTRIBUTION WIDTH 19.7 % (12.0-15.0)
[2018-02-11] MEDS ORDERED: SODIUM CHLORIDE 0.9% 1,000 ML IV ONE (20:42)
[2018-02-11 20:47] LABS: ALBUMIN 4.3 g/dL (3.2-5.5); ALBUMIN/GLOBULIN RATIO 1.1 (1.0-2.2); ALKALINE PHOSPHATASE 116 IU/L (42-121); ALT ALANINE AMINOTRANSFERASE 27 IU/L (10-60); AST ASPARTATE AMINOTRANSFERASE 37 IU/L (10-42); BILIRUBIN,TOTAL 0.4 mg/dL (0.2-1.0); BUN - BLOOD UREA NITROGEN 7 mg/dL (6-20); CALCIUM 8.4 mg/dL (8.5-10.3); CARBON DIOXIDE - CO2 25 mmol/L (21-32); CHLORIDE 106 mmol/L (101-111); CREATININE 0.5 mg/dL (0.4-1.0); GFR - MDRD 133 (>89); GLUCOSE 97 mg/dL (70-100); LIPASE 53 U/L (22-51); SALICYLATE < 6.0 mg/dL; SODIUM 142 mmol/L (135-145); TOTAL PROTEIN 8.2 g/dL (6.7-8.2)
[2018-02-11] MEDS ORDERED: ONDANSETRON 4 MG/2 ML VIAL IVP STA (20:47)
[2018-02-11] MEDS ORDERED: ACETAMINOPHEN 500 MG TABLET PO STA (20:47)
[2018-02-11] MEDS ORDERED: LORazepam 2 MG/ML VIAL IVP STA (20:47)
[2018-02-11] MEDS ORDERED: KETOROLAC 60 MG/2 ML VIAL IVP STA (20:48)
[2018-02-11] MEDS ORDERED: FOLIC ACID INJ 1 MG in SODIUM CHLORIDE 0.9% 1,000 ML IV STA (20:48)
[2018-02-11] MEDS ORDERED: THIAMINE INJ 100 MG in SODIUM CHLORIDE 0.9% 50 ML IV STA (20:48)
[2018-02-11 20:59] LABS: ACETAMINOPHEN < 10 ug/mL (10-30)
--- NOTE | 2018-02-11 21:16 | ED Physician Documentation ---
History of Present Illness - Stated complaint Stated Complaint: ETOH WITHDRAWAL - Chief complaint Chief Complaint: Abd Pain - History obtained from History obtained from: Patient - Additonal information Additional information: 47-year-old female presents the emergency department for evaluation of alcohol abuse. The patient recently has been drinking alcohol on a daily basis for the past month and reports mainly consuming beer. The patient feels like she may be withdrawing, Reports feeling confused and shaky. The patient denies suicidal or homicidal ideations. The patient denies any acute medical complaints. Symptoms are described as moderate. The patient denies any other coingestions. No relieving factors. 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 HEENT: None Psych: Depression, Anxiety Musculoskeletal: Rheumatoid arthritis Derm: None Other Past Medical History: ETOH Abuse - Past Surgical History Past Surgical History: Yes - Present Medications Home Medications: Ambulatory Orders Medication Instructions Recorded Confirmed Cephalexin [Keflex] 500 mg PO TID #15 capsule 05/29/17 HYDROcod/ACETAM 5/325 [[place] 5/325] 1 tab PO Q6H PRN #15 tablet 05/29/17 Ondansetron Odt [Zofran] 4 mg TL Q6H PRN #15 tablet 05/29/17 Sucralfate 1 gm PO QID #20 tablet 05/29/17 predniSONE [Deltasone] 5 mg PO DAILY 05/29/17 05/29/17 Lorazepam [Ativan] 1 mg PO Q4H PRN #4 tablet 12/30/17 Ondansetron Odt [Zofran] 4 mg TL Q6H PRN #10 tablet 12/30/17 - Allergies Allergies/Adverse Reactions: Allergies Allergy/AdvReac Type Severity Reaction Status Date / Time No Known Drug Allergies Allergy Verified 02/11/18 20:22 - Social History Does the pt smoke?: No Smoking Status: Never smoker Does the pt drink ETOH?: Yes ETOH Use: Beer Does the pt have substance abuse?: No - Immunizations Immunizations are current?: Yes - POLST Patient has POLST: No PD ED PE NORMAL - General General: Alert and oriented X 3, No acute distress - HEENT HEENT: Atraumatic, PERRL, EOMI, Ears normal - Cardiac Cardiac: Other (Regular rhythm, tachycardia) - Respiratory Respiratory: No respiratory distress, Clear bilaterally - Abdomen Abdomen: Soft, Non tender - Derm Derm: Normal color - Extremities Extremities: No deformity, No edema - Neuro Neuro: Alert and oriented X 3, No motor deficit, Normal speech - Psych Psych: Normal mood Results - Vitals Vitals: Vital Signs - 24 hr 02/11/18 02/11/18 02/11/18 20:15 21:00 21:33 Temperature 37 C Heart Rate 118 H 106 H 92 Respiratory 20 18 18 Rate Blood Pressure 158/90 H 144/89 H 119/84 H O2 Saturation 93 96 99 02/11/18 22:30 Temperature Heart Rate 101 H Respiratory Rate Blood Pressure 131/82 H O2 Saturation Oxygen O2 Source Room air - Labs Labs: Laboratory Tests 02/11/18 02/11/18 20:24 20:24 WBC 5.0 RBC 4.19 L Hgb 10.2 L Hct 32.2 L MCV 76.8 L MCH 24.3 L MCHC 31.6 L RDW 19.7 H Plt Count 272 MPV 5.9 L Neut # (Auto) 3.3 Lymph # (Auto) 1.3 L [place] # (Auto) 0.3 Eos # (Auto) 0.0 Baso # (Auto) 0.1 Absolute Nucleated RBC 0.00 Nucleated RBC % 0.1 Sodium 142 Potassium 3.8 Chloride 106 Carbon Dioxide 25 Anion Gap 11.0 BUN 7 Creatinine 0.5 Estimated GFR (MDRD) 133 Glucose 97 Calcium 8.4 L Total Bilirubin 0.4 AST 37 ALT 27 Alkaline Phosphatase 116 Total Protein 8.2 Albumin 4.3 Globulin 3.9 Albumin/Globulin Ratio 1.1 Lipase 53 H Salicylates < 6.0 Acetaminophen < 10 L Ethyl Alcohol 357.6 PD MEDICAL DECISION MAKING - ED course ED course: The patient is acutely intoxicated which most likely is the reason for her reported feeling confused. The patient's been in the emergency department for several hours, the patient alcohol level was 357 which would suggest that the patient is acutely intoxicated and not going through withdrawals. The patient was observed in the emergency department and has metabolized to a point where she is clinically sober. The patient is talking and conversing without any difficulty. The patient is eating and drinking. Currently, there is no further medical issue that would necessitate workup in the emergency department. The patient appears appropriate for discharge. We have given the patient numbers for detox if she chooses to undergo treatment for her alcohol abuse. I discussed warning signs and recommended returning to the emergency department immediately for worsening or concerns - Sepsis Event Vital Signs: Vital Signs - 24 hr 02/11/18 02/11/18 02/11/18 20:15 21:00 21:33 Temperature 37 C Heart Rate 118 H 106 H 92 Respiratory 20 18 18 Rate Blood Pressure 158/90 H 144/89 H 119/84 H O2 Saturation 93 96 99 02/11/18 22:30 Temperature Heart Rate 101 H Respiratory Rate Blood Pressure 131/82 H O2 Saturation Oxygen O2 Source Room air Departure - Departure Disposition: 01 Home, Self Care Clinical Impression: Alcohol intoxication Qualifiers: Complication of substance-induced condition: uncomplicated Qualified Code(s): F10.920 - Alcohol use, unspecified with intoxication, uncomplicated Condition: Good Instructions: Alcoholism, ED Withdrawal Alcohol, ED Alcohol Intoxication Comments: Please follow-up with the detox center numbers that we provided to you. Please follow-up with primary care. Please return to the emergency department for worsening symptoms or any concerns
[2018-02-11 22:57] VITALS: BP 131/82
== END 2018-02-11 23:13 | disposition home or self-care (01) ==
LOC: EDUNIT# → ED 20:14
DX: F10.929 Alcohol use, unspecified with intoxication, unspecified (principal); Y90.8 Blood alcohol level of 240 mg/100 ml or more
CPT/HCPCS: 36415; 80053; 80307; 80320; 80329; 83690; 85025; 93005; 96361; 96374; 96375; 99284; A9270; J2060; J3411; J7040

== ENCOUNTER 2019-08-13 16:58 | Outpatient (CLI) | payer MEDICAID | END 2019-08-13 16:59 | disposition critical access hospital (66) | LOC: EMS 16:58 | PROVIDERS: ATTEND Surgery | DX: R50.9 Fever, unspecified (principal); R05 Cough; R06.00 Dyspnea, unspecified | CPT/HCPCS: A0425; A0427; A0999 ==

== ENCOUNTER 2019-08-13 17:36 | Emergency (ER) | payer MEDICAID ==
[2019-08-13] MEDS ORDERED: ONDANSETRON 4 MG/2 ML VIAL IVP STA (17:42)
[2019-08-13] MEDS ORDERED: PANTOPRAZOLE 40 MG VIAL IVP STA (17:42)
--- NOTE | 2019-08-13 17:43 | ED Physician Documentation ---
PD HPI DYSPNEA - Stated complaint Stated Complaint: FLU LIKE SX - History obtained from History obtained from: Patient (48-year-old woman with history of rheumatoid arthritis on Humira and prednisone presents with 3 weeks of a cough worse over the last few days with a fever of up to 102 at home. No recent travel. The cough is productive of green sputum. She states she was seen at [facility] 2 days ago without specific diagnostics or treatment. She admits to drinking heavily last night into this morning.) - Additional information Additional information: She also complains of upper abdominal pain prior to similar ulcers which she is supposed to be taking omeprazole for but not currently. Review of Systems Constitutional: reports: Fever, Chills. denies: Myalgias, Fatigue Nose: denies: Rhinorrhea / runny nose Throat: denies: Sore throat Cardiac: denies: Calf pain Respiratory: reports: Cough. 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 : None HEENT: None Psych: Depression, Anxiety Musculoskeletal: Rheumatoid arthritis Derm: None - Past Surgical History Past Surgical History: Yes - Present Medications Home Medications: Ambulatory Orders Medication Instructions Recorded Confirmed Cephalexin [Keflex] 500 mg PO TID #15 capsule 05/29/17 HYDROcod/ACETAM 5/325 [[place] 5/325] 1 tab PO Q6H PRN #15 tablet 05/29/17 Ondansetron Odt [Zofran] 4 mg TL Q6H PRN #15 tablet 05/29/17 Sucralfate 1 gm PO QID #20 tablet 05/29/17 predniSONE [Deltasone] 5 mg PO DAILY 05/29/17 05/29/17 Lorazepam [Ativan] 1 mg PO Q4H PRN #4 tablet 12/30/17 Ondansetron Odt [Zofran] 4 mg TL Q6H PRN #10 tablet 12/30/17 Azithromycin 1 tab PO DAILY #4 tablet 08/13/19 Lorazepam [Ativan] 1 mg PO TID PRN #10 tablet 08/13/19 Omeprazole 20 mg PO DAILY #30 capsule. 08/13/19 - Allergies Allergies/Adverse Reactions: Allergies Allergy/AdvReac Type Severity Reaction Status Date / Time No Known Drug Allergies Allergy Verified 08/13/19 17:47 - Social History Does the pt smoke?: No Smoking Status: Never smoker Does the pt drink ETOH?: Yes Does the pt have substance abuse?: No - Immunizations Immunizations are current?: Yes - POLST Patient has POLST: No PD ED PE NORMAL - Vitals Vital signs reviewed: Yes - General General: Alert and oriented X 3, No acute distress - HEENT HEENT: PERRL, EOMI - Neck Neck: Supple, no meningeal sign, No bony TTP - Cardiac Cardiac: RRR, No murmur - Respiratory Respiratory: No respiratory distress, Clear bilaterally - Abdomen Abdomen: Non tender - Extremities Extremities: No edema, No calf tenderness / cord - Neuro Neuro: Alert and oriented X 3, Normal speech Results - Vitals Vitals: Vital Signs - 24 hr 08/13/19 17:47 Temperature 36.9 C Heart Rate 82 Respiratory 16 Rate Blood Pressure 140/73 H O2 Saturation 96 Oxygen O2 Source Room air - Labs Labs: Laboratory Tests 08/13/19 08/13/19 08/13/19 17:45 17:45 17:45 WBC 5.8 RBC 4.44 Hgb 12.7 Hct 38.7 MCV 87.2 MCH 28.6 MCHC 32.8 RDW 20.6 H Plt Count 118 L MPV 9.4 Neut # (Auto) 4.7 Lymph # (Auto) 0.8 L [place] # (Auto) 0.1 Eos # (Auto) 0.2 Baso # (Auto) 0.0 Absolute Nucleated RBC 0.00 Nucleated RBC % 0.0 Sodium 141 Potassium 3.9 Chloride 108 Carbon Dioxide 23 Anion Gap 10.0 BUN 7 Creatinine 0.4 Estimated GFR (MDRD) 171 Glucose 108 H Calcium 8.9 Total Bilirubin 0.4 AST 65 H ALT 48 Alkaline Phosphatase 187 H Total Protein 7.9 Albumin 4.4 Globulin 3.5 Albumin/Globulin Ratio 1.3 Lipase 45 Ethyl Alcohol 316.3 Influenza A (Rapid) Negative Influenza B (Rapid) Negative - Rads (name of study) 2v chest Radiology: EMP read contemporaneously (chest) PD MEDICAL DECISION MAKING - ED course ED course: 48-year-old woman with immune compromise due to medications for rheumatoid arthritis presents with fever cough. Chest x-ray is clear and her exam here is benign but she is found to be quite intoxicated. We had a long conversation about this and she is very receptive. She had plans to quit drinking today regardless and I will give her a few Ativan to help with the impending withdrawal. She is given Zithromax given her immunocompromise. Departure - Departure Disposition: 01 Home, Self Care Clinical Impression: Bronchitis, Immune disorder Alcohol intoxication Qualifiers: Complication of substance-induced condition: uncomplicated Qualified Code(s): F10.920 - Alcohol use, unspecified with intoxication, uncomplicated Condition: Good Record reviewed to determine appropriate education?: Yes Instructions: ED Alcohol Intoxication, ED Bronchitis Asthmatic Prescriptions: Azithromycin 1 tab PO DAILY #4 tablet Lorazepam [Ativan] 1 mg PO TID PRN #10 tablet PRN Reason: Anxiety Omeprazole 20 mg PO DAILY #30 capsule. Comments: Do not drink alcohol while taking lorazepam. The lorazepam is to help with any impending alcohol withdrawal symptoms. Avoid alcohol completely. 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 Return anytime if worse. Follow-up with your primary care physician.
[2019-08-13 17:56] LABS: BASOPHILS % (AUTO) 0.3 %; EOSINOPHILS # (AUTO) 0.2 10^3/uL (0.0-0.7); EOSINOPHILS % (AUTO) 2.6 %; HGB - HEMOGLOBIN 12.7 g/dL (12.0-16.0); LYMPHOCYTES # (AUTO) 0.8 10^3/uL (1.5-3.5); LYMPHOCYTES % (AUTO) 13.7 %; MEAN CORPUSCULAR HEMOGLOBIN 28.6 pg (27.0-31.0); MEAN CORPUSCULAR HGB CONC 32.8 g/dL (32.0-36.0); MEAN CORPUSCULAR VOLUME 87.2 fL (81.0-99.0); MEAN PLATELET VOLUME 9.4 fL (7.9-10.8); MONOCYTES # (AUTO) 0.1 10^3/uL (0.0-1.0); MONOCYTES % (AUTO) 1.7 %; NEUTROPHILS # (AUTO) 4.7 10^3/uL (1.5-6.6); NEUTROPHILS % (AUTO) 81.4 %; PLT - PLATELET COUNT 118 10^3/uL (130-450); RED BLOOD COUNT 4.44 10^6/uL (4.20-5.40); RED CELL DISTRIBUTION WIDTH 20.6 % (12.0-15.0); WHITE BLOOD COUNT 5.8 x10^3/uL (4.8-10.8)
[2019-08-13 18:06] LABS: ALBUMIN 4.4 g/dL (3.2-5.5); ALBUMIN/GLOBULIN RATIO 1.3 (1.0-2.2); BILIRUBIN,TOTAL 0.4 mg/dL (0.2-1.0); CALCIUM 8.9 mg/dL (8.5-10.3); CREATININE 0.4 mg/dL (0.4-1.0); TOTAL PROTEIN 7.9 g/dL (6.7-8.2)
--- NOTE | 2019-08-13 18:36 | XRAY Report ---
Reason: cough fever Procedure Date: 08/13/2019 Accession Number: [id number] / [id number] Procedure: XR - Chest 2 View X-Ray CPT Code: 83643 Final Report FULL RESULT: EXAM: CHEST RADIOGRAPHY EXAM DATE: 08/13/2019 06:08 PM. CLINICAL HISTORY: Cough, fever. COMPARISON: None. TECHNIQUE: 2 views. FINDINGS: Lungs/Pleura: No focal opacities evident. No pleural effusion. No pneumothorax. Normal volumes. Mediastinum: Heart and mediastinal contours are unremarkable. Other: None. IMPRESSION: Normal 2-view chest radiography. RADIA
[2019-08-13] MEDS ORDERED: AZITHROMYCIN 250 MG TABLET PO STA (18:55)
[2019-08-13] MEDS ORDERED: LORazepam 1 MG TABLET PO STA (18:55)
[2019-08-13 19:07] VITALS: BP 134/91
== END 2019-08-13 19:07 | disposition home or self-care (01) ==
LOC: EDUNIT# → ED 17:36
DX: J40 Bronchitis, not specified as acute or chronic (principal); D89.9 Disorder involving the immune mechanism, unspecified; F10.920 Alcohol use, unspecified with intoxication, uncomplicated; K70.9 Alcoholic liver disease, unspecified; M06.9 Rheumatoid arthritis, unspecified; Z79.899 Other long term (current) drug therapy; Z79.52 Long term (current) use of systemic steroids; Z87.11 Personal history of peptic ulcer disease
CPT/HCPCS: 36415; 71046; 80053; 80320; 83690; 85025; 87275; 87276; 96374; 96375; 99284; A9270; J8499

== ENCOUNTER 2019-11-29 19:07 | Outpatient (CLI) | payer MEDICAID | END 2019-11-29 19:08 | disposition critical access hospital (66) | LOC: EMS 19:07 | PROVIDERS: ATTEND Surgery | DX: R10.9 Unspecified abdominal pain (principal) | CPT/HCPCS: A0425; A0427 ==

== ENCOUNTER 2019-11-29 19:36 | Inpatient (IN) | payer MEDICAID ==
--- NOTE | 2019-11-29 19:48 | ED Physician Documentation ---
PD HPI ABD PAIN - Stated complaint Stated Complaint: ABD PAIN - Chief complaint Chief Complaint: Abd Pain - History obtained from History obtained from: Patient - History of Present Illness Timing - onset: How many hours ago (1), Today Timing - duration: Hours (1) Timing - details: Abrupt onset, Still present Quality: Cramping, Aching, Pain Location: RUQ, Epigastric Radiation: No: Chest, Upper back Improved by: No: Laying still, Vomiting Worsened by: Eating, Moving, Breathing, Palpation Associated symptoms: Nausea, Vomiting (couple of times, which she felt was from the pain.). No: Fever, Hematemesis, Diarrhea, Constipation Similar symptoms before: Has not had sx before Recently seen: Not recently seen Review of Systems Constitutional: denies: Fever, Chills Nose: denies: Rhinorrhea / runny nose, Congestion Throat: denies: Sore throat Cardiac: denies: Chest pain / pressure Respiratory: denies: Cough GI: reports: Abdominal Pain, Nausea. denies: Abdominal Swelling, Constipation, Diarrhea, Bloody / black stool : denies: Dysuria, Frequency Musculoskeletal: denies: Back pain, Extremity swelling Neurologic: reports: Generalized weakness. 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 : None HEENT: None Psych: Depression, Anxiety Musculoskeletal: Rheumatoid arthritis Derm: None - Past Surgical History Past Surgical History: Yes - Present Medications Home Medications: Ambulatory Orders Medication Instructions Recorded Confirmed Cephalexin [Keflex] 500 mg PO TID #15 capsule 05/29/17 HYDROcod/ACETAM 5/325 [[place] 5/325] 1 tab PO Q6H PRN #15 tablet 05/29/17 Ondansetron Odt [Zofran] 4 mg TL Q6H PRN #15 tablet 05/29/17 Sucralfate 1 gm PO QID #20 tablet 05/29/17 predniSONE [Deltasone] 5 mg PO DAILY 05/29/17 05/29/17 Lorazepam [Ativan] 1 mg PO Q4H PRN #4 tablet 12/30/17 Ondansetron Odt [Zofran] 4 mg TL Q6H PRN #10 tablet 12/30/17 Azithromycin 1 tab PO DAILY #4 tablet 08/13/19 Lorazepam [Ativan] 1 mg PO TID PRN #10 tablet 08/13/19 Omeprazole 20 mg PO DAILY #30 capsule. 08/13/19 - Allergies Allergies/Adverse Reactions: Allergies Allergy/AdvReac Type Severity Reaction Status Date / Time No Known Drug Allergies Allergy Verified 11/29/19 19:43 - Social History Does the pt smoke?: No Smoking Status: Never smoker Does the pt drink ETOH?: Yes Does the pt have substance abuse?: No - Immunizations Immunizations are current?: Yes - POLST Patient has POLST: No PD ED PE NORMAL - Vitals Vital signs reviewed: Yes - General General: Alert and oriented X 3, Well developed/nourished, Other (She appears in marked discomfort with being doubled over and holding her upper abdomen.) - HEENT HEENT: PERRL (nonicteric), EOMI, Ears normal, Moist mucous membranes, Pharynx benign - Neck Neck: Supple, no meningeal sign, No adenopathy - Cardiac Cardiac: No murmur. No: RRR (regular but tachycardic) - Respiratory Respiratory: Clear bilaterally - Abdomen Abdomen: Soft, Non distended, No organomegaly, Other (Bowel sounds are decreased. She is markedly tender in the upper abdomen touch and percussion. The lower abdomen is nontender. She does have some rebound tenderness in the upper abdomen.) - Female Female : Deferred - Rectal Rectal: Deferred - Back Back: No CVA TTP - Derm Derm: Normal color, Warm and dry - Neuro Neuro: Alert and oriented X 3, No motor deficit, Normal speech Results - Vitals Vitals: Vital Signs - 24 hr 11/29/19 11/29/19 11/29/19 19:35 19:44 22:09 Temperature 36.3 C L Heart Rate 101 H 96 73 Respiratory 16 14 14 Rate Blood Pressure 137/88 H 137/88 H 119/78 O2 Saturation 99 95 98 Oxygen O2 Source Room air - Labs Labs: Laboratory Tests 11/29/19 11/29/19 11/29/19 20:30 20:30 20:50 WBC 13.0 H RBC 4.07 L Hgb 12.6 Hct 38.8 MCV 95.3 MCH 31.0 MCHC 32.5 RDW 18.2 H Plt Count 412 MPV 9.5 Neut # (Auto) 9.9 H Lymph # (Auto) 1.8 [place] # (Auto) 1.0 Eos # (Auto) 0.0 Baso # (Auto) 0.1 Absolute Nucleated RBC 0.00 Nucleated RBC % 0.0 Sodium 138 Potassium 3.4 L Chloride 107 Carbon Dioxide 23 Anion Gap 8.0 BUN 16 Creatinine 0.7 Estimated GFR (MDRD) 89 Glucose 121 H Calcium 9.1 Magnesium 2.0 Total Bilirubin 0.6 AST 85 H ALT 93 H Alkaline Phosphatase 178 H Total Protein 7.5 Albumin 4.3 Globulin 3.2 Albumin/Globulin Ratio 1.3 Triglycerides 115 Cholesterol 225 H LDL Cholesterol, Calc 112 VLDL Cholesterol 23 HDL Cholesterol 90 LDL/HDL Ratio 1.2 Cholesterol/HDL Ratio 2.5 Lipase 4140 H Ethyl Alcohol < 5.0 - Rads (name of study) abd/pelvic CT Radiology: Prelim report reviewed (Acute pancreatitis. No gallstones nor biliary abnormality noted.), See rad report PD MEDICAL DECISION MAKING - ED course Complexity details: reviewed old records (She had labs done just last couple of days showing mild elevation of liver enzymes but the CMP performed did not include amylase normal lipase.), reviewed results (Acute pancreatitis based on labs and CT finding.), re-evaluated patient, considered differential (Severe abrupt pain so considerations of perforation or obstruction pancreatitis or biliary colic as the main concerns.), d/w patient ED course: She has not had any alcohol. It does not appear to be a biliary colic. Her medication list includes omeprazole which does have pancreatitis as a potential side effect. I would not anticipate it from [facility] Departure - Departure Disposition: 66 [facility] DC/Xfer Clinical Impression: Upper abdominal pain Acute pancreatitis Qualifiers: Pancreatitis type: unspecified pancreatitis type Acute pancreatitis complication: no infection or necrosis Qualified Code(s): K85.90 - Acute pancreatitis without necrosis or infection, unspecified Condition: Stable Record reviewed to determine appropriate education?: Yes Discharge Date/Time: 11/29/19 23:18
[2019-11-29] MEDS ORDERED: SODIUM CHLORIDE 0.9% 1,000 ML IV STA ×2 (20:07→22:14)
[2019-11-29] MEDS ORDERED: HYDROmorphone 1 MG/ML CARPUJECT IVP STA ×2 (20:07→21:16)
[2019-11-29] MEDS ORDERED: FAMOTIDINE 20 MG/2 ML SYRINGE IVP STA (20:08)
[2019-11-29] MEDS ORDERED: ONDANSETRON 4 MG/2 ML VIAL IVP STA (20:08)
[2019-11-29] MEDS ORDERED: IOVERSOL 320 100 ML VIAL IVP ONE ×2 (20:20→21:28)
[2019-11-29] MEDS ORDERED: IOVERSOL 320 50 ML VIAL ONE (20:20)
[2019-11-29 20:35] LABS: BASOPHILS # (AUTO) 0.1 10^3/uL (0.0-0.1); BASOPHILS % (AUTO) 0.7 %; EOSINOPHILS % (AUTO) 0.3 %; HGB - HEMOGLOBIN 12.6 g/dL (12.0-16.0); LYMPHOCYTES # (AUTO) 1.8 10^3/uL (1.5-3.5); LYMPHOCYTES % (AUTO) 14.1 %; MEAN CORPUSCULAR HGB CONC 32.5 g/dL (32.0-36.0); MEAN CORPUSCULAR VOLUME 95.3 fL (81.0-99.0); MEAN PLATELET VOLUME 9.5 fL (7.9-10.8); MONOCYTES % (AUTO) 7.9 %; NEUTROPHILS # (AUTO) 9.9 10^3/uL (1.5-6.6); NEUTROPHILS % (AUTO) 76.5 %; PLT - PLATELET COUNT 412 10^3/uL (130-450); RED BLOOD COUNT 4.07 10^6/uL (4.20-5.40); RED CELL DISTRIBUTION WIDTH 18.2 % (12.0-15.0)
[2019-11-29 21:07] LABS: ALBUMIN 4.3 g/dL (3.2-5.5); ALBUMIN/GLOBULIN RATIO 1.3 (1.0-2.2); ALKALINE PHOSPHATASE 178 IU/L (42-121); ALT ALANINE AMINOTRANSFERASE 93 IU/L (10-60); AST ASPARTATE AMINOTRANSFERASE 85 IU/L (10-42); BILIRUBIN,TOTAL 0.6 mg/dL (0.2-1.0); BUN - BLOOD UREA NITROGEN 16 mg/dL (6-20); CALCIUM 9.1 mg/dL (8.5-10.3); CARBON DIOXIDE - CO2 23 mmol/L (21-32); CHLORIDE 107 mmol/L (101-111); CREATININE 0.7 mg/dL (0.4-1.0); GLUCOSE 121 mg/dL (70-100); LIPASE 4140 U/L (22-51); SODIUM 138 mmol/L (135-145); TOTAL PROTEIN 7.5 g/dL (6.7-8.2)
[2019-11-29] MEDS ORDERED: IOVERSOL 320 50 ML VIAL PO ONE (21:29)
[2019-11-29] MEDS ORDERED: PROMETHAZINE INJ 12.5 MG in SODIUM CHLORIDE 0.9% 50 ML IV STA (21:51)
[2019-11-29] MEDS ORDERED: KETOROLAC 30 MG/ML VIAL IVP STA (21:51)
--- NOTE | 2019-11-29 21:54 | CT Report ---
PROCEDURE: Abdomen/Pelvis W INDICATIONS: upper abd pain abrupt this evening CONTRAST: IV CONTRAST: Optiray 320 ml: 100 PO CONTRAST: Optiray 320 ml100 TECHNIQUE: After the administration of oral and intravenous contrast, 5 mm thick sections acquired from the diap hragms to the symphysis. 5 mm thick coronal and sagittal reformats were acquired. For radiation dos e reduction, the following was used: automated exposure control, adjustment of mA and/or kV accordin g to patient size. COMPARISON: . FINDINGS: Image quality: Excellent. ABDOMEN: Lung bases: Lung bases are clear. Heart size is normal. Solid organs: Liver and spleen are normal in size and enhancement. Gallbladder is unremarkable Kendrick iary system is non dilated. The pancreas is somewhat edematous with peripancreatic inflammatory ceron e in the adjacent fat and mild peripancreatic fluid, consistent with acute pancreatitis. There is no evidence of pancreatic necrosis. No free air or abscess cavity. No adrenal nodules. Kidneys demonstr ate normal size and enhancement, without hydronephrosis. Peritoneum and bowel: Bowel loops demonstrate normal wall thickness and caliber. No free fluid or a ir. Nodes and vessels: No retroperitoneal or mesenteric adenopathy by size criteria. Aorta and inferior vena cava are normal in size. Miscellaneous: No ventral hernias. PELVIS: Genitourinary: Bladder wall thickness is normal. Miscellaneous: No inguinal hernias or adenopathy. There is either an endometrial polyp or a polypoi d fibroid or adherent clot in the endometrial cavity measuring approximately 1.3 x 1.9 cm. Reference image 78/3. This was not identifiable on the previous study. There is a right adnexal cyst measuring 4.9 x 3.7 cm. It was not present on the previous study. Bones: No suspicious bony lesions. No vertebral body compression fractures. IMPRESSION: 1. Acute pancreatitis. 3. Right adnexal cyst measuring 4.9 cm in maximum dimension. 3. 1.8 cm maximum diameter endometrial polyp versus polypoid fibroid versus adherent clot. Reviewed by: Ender Nicolas MD on 11/29/2019 9:53 PM PDT Approved by: Ender Nicolas MD on 11/29/2019 9:53 PM PDT Station ID: [id number]
[2019-11-29] MEDS ORDERED: ONDANSETRON 4 MG/2 ML VIAL IVP PRN (22:15)
[2019-11-29] MEDS ORDERED: SODIUM CHLORIDE FLUSH 0.9% 10 ML SYRINGE IVP PRN (22:15)
[2019-11-29] MEDS ORDERED: LACTATED RINGERS 1,000 ML IV ONE (22:18)
--- NOTE | 2019-11-29 22:25 | HISTORY & PHYSICAL EXAMINATION ---
Chief Complaint - Chief Complaint Chief Complaint: Abdominal pain History of Present Illness - Admitted From Admitted From:: Home - History Obtained From Records Reviewed: Yes History obtained from: Patient, ER Physician, EMR - History of Present Illness HPI Comment/Other: This is a 49-year-old female with a past medical history significant for rheu matoid arthritis who presents today complaining of acute onset epigastric pain. She reports she ate some stirfry around 4 PM and about an hour or 2 later she felt some mild epigastric pain. This became quite severe within 30 minutes. She had associated nausea and nonbloody emesis. The pain was quite severe and nonradiating. It is alleviated with IV Dilaudid. She reports no fevers, chills, chest pain, dyspnea, diarrhea. She reports no similar symptoms in the past. She states she does have a history of on and off alcohol use but she has not drank alcohol since August. She reports no prior history of cholelithiasis to her knowledge. She does take methotrexate, Humira, prednisone for rheumatoid arthritis. She is due for her next dose of Humira tomorrow. She reports she was just contacted by her cashier credit to decrease her methotrexate dose to 12.5 mg weekly as her liver function tests were slightly elevated. In the emergency department, her labs were significant for a lipase over 4000. A CT of the abdomen pelvis was obtained which was consistent with acute pancreatitis. No obvious cholelithiasis or ductal dilation was present on imaging. She was given antiemetics and IV Dilaudid and Toradol for pain control. Given these findings, medicine was consulted for admission. 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 Living arrangement: At home Living Situation: With spouse/s.o. Social History Notes: He lives at home with her boyfriend, Trell. She is currently unemployed but is planning on going back to school next week. 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 She reports smoking a few cigarettes here and there but no daily use of tobacco. She states that she is not drank alcohol since August. She reports prior episodes of binge drinking last being in August when she was drinking for about 1 month. She reports about 6-7 years ago she did have alcohol withdrawal. She is adamant on abstaining from alcohol. - Substance History Use: Uses substance without health or social issues: Tobacco - POLST Patient has POLST: No Meds/Allgy - Home Medications Home Medications: Ambulatory Orders Medication Instructions Recorded Confirmed Cephalexin [Keflex] 500 mg PO TID #15 capsule 05/29/17 HYDROcod/ACETAM 5/325 [[place] 5/325] 1 tab PO Q6H PRN #15 tablet 05/29/17 Ondansetron Odt [Zofran] 4 mg TL Q6H PRN #15 tablet 05/29/17 Sucralfate 1 gm PO QID #20 tablet 05/29/17 predniSONE [Deltasone] 5 mg PO DAILY 05/29/17 05/29/17 Lorazepam [Ativan] 1 mg PO Q4H PRN #4 tablet 12/30/17 Ondansetron Odt [Zofran] 4 mg TL Q6H PRN #10 tablet 12/30/17 Azithromycin 1 tab PO DAILY #4 tablet 08/13/19 Lorazepam [Ativan] 1 mg PO TID PRN #10 tablet 08/13/19 Omeprazole 20 mg PO DAILY #30 capsule. 08/13/19 - Allergies Allergies/Adverse Reactions: Allergies Allergy/AdvReac Type Severity Reaction Status Date / Time No Known Drug Allergies Allergy Verified 11/29/19 19:43 Review of Systems - Constitutional Constitutional: reports: Malaise, Poor appetite. denies: Fatigue, Fever, Chil ls, Weakness - Eyes Eyes: denies: Blurred vision - Ears, Nose & Throat Ears, Nose & Throat: denies: Nasal discharge, Postnasal drainage, Sore throat - Cardiovascular Cariovascular: denies: Chest pain, Edema, Lightheadedness, Exertional dyspnea, Decr. exercise tolerance - Respiratory Respiratory: denies: Cough, SOB at rest, SOB with exertion - Gastrointestinal Gastrointestinal: reports: Abdominal pain, Nausea, Vomiting, Reflux/heartburn. denies: Abdominal distention, Diarrhea, Prem blood emesis, Coffee grounds emesis - Genitourinary Genitourinary: denies: Dysuria, Frequency, Urgency - Musculoskeletal Musculoskeletal: reports: Joint pain. denies: Muscle pain, Limited range of motion, Muscle weakness - Integumentary Integumentary: denies: Rash - Neurological Neurological: denies: General weakness, Focal weakness, Headache, Dizziness, Num bness - Psychiatric Psychiatric: denies: Suicidal - All Other Systems All Other Systems: reports: Reviewed and negative Prior Level of Functionality: She is independent with her ADL's. Exam - Vital Signs Reviewed Vital Signs: Yes Vital Signs: Vital Signs x48h Temp Pulse Resp BP Pulse Ox 11/29/19 22:09 73 14 119/78 98 11/29/19 19:44 96 14 137/88 H 95 11/29/19 19:35 36.3 C L 101 H 16 137/88 H 99 - Physical Exam General Appearance: positive: Alert, Mild distress Eyes Bilateral: positive: Normal inspection, Conjunctivae nml ENT: positive: ENT inspection nml, No signs of dehydration Neck: positive: Nml inspection Respiratory: positive: No respiratory distress. negative: Wheezes, Rales, Rhonchi Cardiovascular: positive: Regular rate & rhythm, No murmur. negative: Tachycardia, Bradycardia, Systolic murmur Abdomen: positive: Nml bowel sounds, No distention, Tenderness (Epigastric.). negative: Non-tender, Guarding, Rebound Skin: positive: No rash, Warm, Dry Extremities: positive: Full ROM, No pedal edema Neurologic/Psychiatric: positive: Oriented x3, Motor nml. negative: Disoriented to person, Disoriented to place, Disoriented to time Conclusion/Plan - Problem List (1) Acute pancreatitis Conclusion/Plan: The etiology is unclear at this time but differential is quite broad at ths time. This may potentially be autoimmune pancreatitis or gallstone pancreatitis despite the CT not suggesting any ductal dilation. I doubt alcohol as a cause given her last alcoholic beverage was about [address] is consistent with acute pancreatitis. At this time, we will give her another liter of lactated Ringer's and started on IV maintenance fluids at 200 mL an hour. Pain control with Dilaudid and Toradol IV as needed. Zofran as needed for nausea. We will keep her n.p.o. overnight and start her on a clear liquid diet in the morning. Obtain abdominal ultrasound to evaluate for cholelithiasis. Check a lipid panel to evaluate for possible hypertriglyceridemia. Trend lipase. If all this work-up is unremarkable then we will check an LUCILLE and IgG4 to evaluate for possible autoimmune pancreatitis. Qualifiers: Pancreatitis type: unspecified pancreatitis type Acute pancreatitis complication: no infection or necrosis Qualified Code(s): K85.90 - Acute pancreatitis without necrosis or infection, unspecified (2) Rheumatoid arthritis Conclusion/Plan: Stable. She is on Humira, methotrexate, prednisone. She is due for her next Humira dose tomorrow which she takes every 2 weeks. She normally takes 5 mg of prednisone daily which we will resume. She will continue outpatient follow-up with Dr. Head at [facility]. (3) History of alcohol abuse Conclusion/Plan: She has had multiple ER visits in the past for alcohol intoxication. She currently denies any recent alcohol use and her alcohol level today is less than 5. Doubt this is the cause of her pancreatitis but is still remains on the differential. - Lab Results Lab results reviewed: Yes Fish Bones: 11/29/19 20:30 11/29/19 20:30 - Diagnostic Imaging Results Diagnostic Imaging Results: positive: Final report reviewed Core Measures - Anticipated LOS I expect patient to be DC'd or transferred within 96 hours.: Yes - Issues Hospital Issues and Management Plan: 49-year-old female with history of rheumatoid arthritis admitted for acute pancreatitis. We will keep n.p.o. overnight and start on clinical diet in the morning. Check triglycerides and ultrasound of the abdomen. If these are unremarkable she will need work-up for autoimmune pancreatitis including LUCILLE and IgG4. Pain control and antiemetics. - DVT/VTE - Prophylaxis VTE/DVT Device ordered at admit?: Yes VTE/DVT Prophylaxis med ordered at admit?: Yes
[2019-11-29 22:37] LABS: CHOL/HDL RATIO 2.5 (<4.4); CHOLESTEROL 225 mg/dL; HDL CHOLESTEROL 90 mg/dL; LDL CHOLESTEROL,CALCULATED 112 mg/dL; LDL/HDL RATIO 1.2 (<4.4); VLDL CHOLESTEROL 23 mg/dL
[2019-11-29] MEDS ORDERED: SODIUM CHLORIDE 0.9% 1,000 ML IV ONE (23:10)
[2019-11-29] MEDS: SODIUM CHLORIDE FLUSH 0.9% 10 ML SYRINGE IVP SCH (23:52)
[2019-11-29] MEDS: HYDROmorphone 1 MG/ML CARPUJECT IVP PRN (23:52)
[2019-11-30] MEDS: LACTATED RINGERS 1,000 ML IV SCH ×5 (00:28→21:13)
[2019-11-30] MEDS: KETOROLAC 30 MG/ML VIAL IVP PRN ×2 (03:37→14:53)
[2019-11-30] MEDS: HYDROmorphone 1 MG/ML CARPUJECT IVP PRN ×5 (03:38→20:47)
[2019-11-30 05:46] LABS: BASOPHILS % (AUTO) 0.5 %; EOSINOPHILS # (AUTO) 0.1 10^3/uL (0.0-0.7); EOSINOPHILS % (AUTO) 0.7 %; HGB - HEMOGLOBIN 10.2 g/dL (12.0-16.0); LYMPHOCYTES # (AUTO) 1.4 10^3/uL (1.5-3.5); LYMPHOCYTES % (AUTO) 17.9 %; MEAN CORPUSCULAR HEMOGLOBIN 29.1 pg (27.0-31.0); MEAN CORPUSCULAR HGB CONC 30.2 g/dL (32.0-36.0); MEAN CORPUSCULAR VOLUME 96.6 fL (81.0-99.0); MEAN PLATELET VOLUME 9.5 fL (7.9-10.8); MONOCYTES # (AUTO) 0.7 10^3/uL (0.0-1.0); MONOCYTES % (AUTO) 9.3 %; NEUTROPHILS # (AUTO) 5.5 10^3/uL (1.5-6.6); NEUTROPHILS % (AUTO) 71.2 %; PLT - PLATELET COUNT 296 10^3/uL (130-450); RED CELL DISTRIBUTION WIDTH 18.6 % (12.0-15.0); WHITE BLOOD COUNT 7.7 x10^3/uL (4.8-10.8)
[2019-11-30 06:28] LABS: CALCIUM 7.9 mg/dL (8.5-10.3); CREATININE 0.6 mg/dL (0.4-1.0); MAGNESIUM 1.9 mg/dL (1.7-2.8); PHOSPHORUS 3.3 mg/dL (2.5-4.6)
[2019-11-30] MEDS: PANTOPRAZOLE 40 MG VIAL IVP SCH (07:07)
[2019-11-30] MEDS: SODIUM CHLORIDE FLUSH 0.9% 10 ML SYRINGE IVP SCH ×2 (07:08→16:04)
[2019-11-30] MEDS ORDERED: MULTIVITAMIN TABLET PO SCH (08:00)
[2019-11-30] MEDS ORDERED: predniSONE 5 MG TABLET PO SCH (08:00)
[2019-11-30] MEDS ORDERED: LORazepam 1 MG TABLET PO PRN (08:11)
--- NOTE | 2019-11-30 08:23 | Ultrasound Report ---
PROCEDURE: Abdomen Complete INDICATIONS: Pancreatitis. Abnormal LFT's. TECHNIQUE: Real-time scanning was performed of the abdominal and retroperitoneal organs, with image documentatio n. COMPARISON: CT abdomen pelvis 11/29/2019, 05/29/2017 FINDINGS: Liver: Liver is mildly enlarged without focal lesion. Gallbladder: Gallbladder demonstrates no stones. Wall thickness is within normal limits measuring 2.3 cm. Biliary ducts: Intrahepatic bile ducts are non-dilated. Extrahepatic bile duct caliber measures 4 m m. Normal is 6-7 mm or less in diameter, or 10 mm or less post-cholecystectomy. Pancreas: Poorly visualized secondary to bowel gas. Spleen: Spleen is normal in size and homogeneous in echotexture. Kidneys: Kidneys are normal in size and echotexture. Right kidney measures 11.1 cm long; left kidne y measures 11.1 cm long. No hydronephrosis or nephrolithiasis. No solid masses. Bilateral renal cy sts are identified the largest on the right measuring 11 x 7 x 12 mm and the largest on the left virginie uring 11 x 9 x 13 mm. Aorta: Visualized aorta is normal in caliber at less than 3 cm. Iliacs: Proximal common iliac arteries are normal in caliber at less than 2.5 cm. IVC: Intrahepatic inferior vena cava is patent. Miscellaneous: Trace perihepatic and perisplenic fluid. Right adnexal cyst is noted measuring 43 x 29 x 33 mm. IMPRESSION: 1. Mild hepatomegaly. No focal lesion. 2. Pancreas is poorly visualized secondary to bowel gas. It is noted imaging findings suggestive of pancreatitis were present on CT abdomen pelvis of 11/29/2019. 3. Renal cysts. Reviewed by: Lyudmila Mayfield MD on 11/30/2019 8:21 AM PDT Approved by: Lyudmila Mayfield MD on 11/30/2019 8:21 AM PDT Station ID: [id number]
[2019-11-30] MEDS ORDERED: THIAMINE 100 MG TABLET PO SCH (09:00)
[2019-11-30] MEDS: ENOXAPARIN 40 MG/0.4 ML SYRINGE SUBQ SCH (09:03)
--- NOTE | 2019-11-30 09:28 | PHARMACY PROGRESS NOTE ---
- Best Possible Medication History Admit Date and Time: 11/29/19 9465 Processed by: Pharmacy Medication History completed: Yes Secondary Source(s): Pharmacy records, Insurance records As the person ultimately responsible for medication therapy, providers are able to order a medication from an existing home medication list in [facility] via the "Reconcile Routine" prior to Confirmation of that medication by manager decision support. Such practice is discouraged except when the physician, in their clinical judgment, deems that a medical need exists for a medication without regard to previous use.
--- NOTE | 2019-11-30 12:24 | PROVIDER PROGRESS NOTE ---
Assessment/Plan - Problem List (1) Acute pancreatitis Qualifiers: Pancreatitis type: unspecified pancreatitis type Acute pancreatitis complication: no infection or necrosis Qualified Code(s): K85.90 - Acute pancreatitis without necrosis or infection, unspecified Assessment/Plan: 11/29, patient report her abdominal pain is slightly better compared with when she was admitted on yesterday evening.But when she tried to eat clear diet she still complain abdominal pain come back. Ultrasound and a CAT scan of the abdomen did not support gallstone pancreatitis. Patient has history of alcohol abuse but patient report she did not drinks alcohol for 2 or 3 months. Lipid panel test was unremarkable. Patient has history of RA. She was treated for with Prednisone, methotrexate, Humira. We will test the LUCILLE, unfortunately we do not have IgG4 test in this hospital. Advised the patient see GI specialist or her RA physician as out-patient after her active pancreatitis was resolved in hospital to see if her pancreatitis was caused by autoimmune. Continue bowel rest, advance diet as the patient tolerated, continue intravenous IV fluids, continue pain control and continue antiemesis as needed. (2) Rheumatoid arthritis Conclusion/Plan: Stable. She is on Humira, methotrexate, prednisone. we will resume Prednisone. She will continue outpatient follow-up with Dr. Head at [facility]. (3) History of alcohol abuse Conclusion/Plan: She has had multiple ER visits in the past for alcohol intoxication. She currently denies any recent alcohol use and her alcohol level today is less than 5. Encourage patient continue stopping alcohol drink - Current Meds Current Meds: Current Medications Generic Name Dose Route Start Last Admin Trade Name Freq PRN Reason Stop Dose Admin Enoxaparin Sodium 40 mg 11/30/19 09:00 11/30/19 09:03 Lovenox SUBQ 40 mg DAILY IVETTE Administration Hydromorphone HCl 1 mg 11/29/19 22:37 11/30/19 08:58 Dilaudid Inj Carp IVP 1 mg Q2H PRN Administration PAIN 8-10 Lactated Ringer's 1,000 mls @ 200 mls/hr 11/29/19 23:00 11/30/19 10:33 Lr IV 200 mls/hr .Q5H IVETTE Administration Ketorolac Tromethamine 30 mg 11/29/19 22:17 11/30/19 03:37 Toradol Inj (30mg) IVP 12/04/19 22:16 30 mg Q6HR PRN Administration PAIN Pantoprazole Sodium 40 mg 11/30/19 07:00 11/30/19 07:07 Protonix IVP 40 mg QDAC IVETTE Administration Sodium Chloride 10 ml 11/30/19 01:00 11/30/19 07:08 Normal Saline Flush 0.9% IVP 10 ml 0100,0900,1700 IVETTE Administration - Lab Result Fish Bone Diagrams: 11/30/19 05:10 11/30/19 05:10 - Additional Planning My Orders: My Active Orders 11/30/19 LUCILLE SCREEN W REFLEX TITER [REFLAB] Routine 11/30/19 08:11 LORazepam [Ativan] 1 mg PO Q8H PRN 11/30/19 12:00 Vitamin [Trinatal Rx 1] 1 tab PO DAILYWM 11/30/19 17:00 predniSONE [Deltasone] 5 mg PO BIDWM 12/01/19 05:00 CMP [COMPREHENSIVE METABOLIC PANEL] [CHEM] DAILYLAB 12/02/19 05:00 CMP [COMPREHENSIVE METABOLIC PANEL] [CHEM] DAILYLAB 12/03/19 05:00 CMP [COMPREHENSIVE METABOLIC PANEL] [CHEM] DAILYLAB 12/04/19 05:00 CMP [COMPREHENSIVE METABOLIC PANEL] [CHEM] DAILYLAB Subjective - Subjective Patient Reports: Feeling Better Objective Vital Signs: Vital Signs - 24 hr 11/29/19 11/29/19 11/29/19 19:35 19:44 22:09 Temperature 36.3 C L Heart Rate 101 H 96 73 Heart Rate [ Brachial] Respiratory 16 14 14 Rate Blood Pressure 137/88 H 137/88 H 119/78 Blood Pressure [Right Brachial artery] O2 Saturation 99 95 98 11/29/19 11/30/19 11/30/19 23:13 00:22 03:35 Temperature 36.5 C 36.5 C 36.3 C L Heart Rate 72 Heart Rate [ 72 68 Brachial] Respiratory 24 22 16 Rate Blood Pressure Blood Pressure 129/76 97/61 [Right Brachial artery] O2 Saturation 98 98 96 11/30/19 11/30/19 08:17 09:09 Temperature 36.5 C Heart Rate Heart Rate [ 64 Brachial] Respiratory 18 Rate Blood Pressure Blood Pressure 96/57 L 125/71 [Right Brachial artery] O2 Saturation 98 Oxygen O2 Source Room air I&O (Last 24 Hrs): Intake and Output Totals x24h 11/28/19 11/29/19 11/30/19 23:59 23:59 23:59 Intake Total 1100.5 3350 Balance 1100.5 3350 General: Alert, Oriented x3, No acute distress HEENT: Atraumatic Neck: Supple Lymphatic: no adenopathy Neuro: Alert, Non Focal, Oriented Times 3 Cardiovascular: Regular rate, Normal S1, Normal S2 Respiratory: Chest non-tender, No respiratory distress, Breath sounds nml Abdomen: Normal bowel sounds, Soft, No tenderness Extremities: Normal pulses - Results Results: Laboratory Results WBC 7.7 x10^3/uL (4.8-10.8) 11/30/19 05:10 RBC 3.50 10^6/uL (4.20-5.40) L 11/30/19 05:10 Hgb 10.2 g/dL (12.0-16.0) L 11/30/19 05:10 Hct 33.8 % (37.0-47.0) L 11/30/19 05:10 MCV 96.6 fL (81.0-99.0) 11/30/19 05:10 MCH 29.1 pg (27.0-31.0) 11/30/19 05:10 MCHC 30.2 g/dL (32.0-36.0) L 11/30/19 05:10 RDW 18.6 % (12.0-15.0) H 11/30/19 05:10 Plt Count 296 10^3/uL (130-450) 11/30/19 05:10 MPV 9.5 fL (7.9-10.8) 11/30/19 05:10 Neut # (Auto) 5.5 10^3/uL (1.5-6.6) 11/30/19 05:10 Lymph # (Auto) 1.4 10^3/uL (1.5-3.5) L 11/30/19 05:10 [place] # (Auto) 0.7 10^3/uL (0.0-1.0) 11/30/19 05:10 Eos # (Auto) 0.1 10^3/uL (0.0-0.7) 11/30/19 05:10 Baso # (Auto) 0.0 10^3/uL (0.0-0.1) 11/30/19 05:10 Absolute Nucleated RBC 0.00 x10^3/uL 11/30/19 05:10 Nucleated RBC % 0.0 /100WBC 11/30/19 05:10 Sodium 136 mmol/L (135-145) 11/30/19 05:10 Potassium 3.5 mmol/L (3.5-5.0) 11/30/19 05:10 Chloride 108 mmol/L (101-111) 11/30/19 05:10 Carbon Dioxide 24 mmol/L (21-32) 11/30/19 05:10 Anion Gap 4.0 (6-13) L 11/30/19 05:10 BUN 12 mg/dL (6-20) 11/30/19 05:10 Creatinine 0.6 mg/dL (0.4-1.0) 11/30/19 05:10 Estimated GFR (MDRD) 107 (>89) 11/30/19 05:10 Glucose 94 mg/dL (70-100) 11/30/19 05:10 Calcium 7.9 mg/dL (8.5-10.3) L 11/30/19 05:10 Phosphorus 3.3 mg/dL (2.5-4.6) 11/30/19 05:10 Magnesium 1.9 mg/dL (1.7-2.8) 11/30/19 05:10 Total Bilirubin 0.6 mg/dL (0.2-1.0) 11/29/19 20:30 AST 85 IU/L (10-42) H 11/29/19 20:30 ALT 93 IU/L (10-60) H 11/29/19 20:30 Alkaline Phosphatase 178 IU/L (42-121) H 11/29/19 20:30 Total Protein 7.5 g/dL (6.7-8.2) 11/29/19 20:30 Albumin 4.3 g/dL (3.2-5.5) 11/29/19 20:30 Globulin 3.2 g/dL (2.1-4.2) 11/29/19 20:30 Albumin/Globulin Ratio 1.3 (1.0-2.2) 11/29/19 20:30 Triglycerides 115 mg/dL (-149) 11/29/19 20:50 Cholesterol 225 mg/dL (-199) H 11/29/19 20:50 LDL Cholesterol, Calc 112 mg/dL (-129) 11/29/19 20:50 VLDL Cholesterol 23 mg/dL 11/29/19 20:50 HDL Cholesterol 90 mg/dL (60-) 11/29/19 20:50 LDL/HDL Ratio 1.2 (<4.4) 11/29/19 20:50 Cholesterol/HDL Ratio 2.5 (<4.4) 11/29/19 20:50 Lipase 1404 U/L (22-51) H 11/30/19 05:10 Ethyl Alcohol < 5.0 mg/dL 11/29/19 20:30 Sepsis Event Note (H) - Evaluation Current Stage of Sepsis: Ruled out ABX Reporting Has patient been on IV antibiotics over the past 48 hours?: No Current Medications - Current Medications Current Medications: Active Medications Acetaminophen (Tylenol) 650 mg PO Q4HR PRN PRN Reason: Pain 1 to 4 Enoxaparin Sodium (Lovenox) 40 mg SUBQ DAILY [facility] Last Admin: 11/30/19 09:03 Dose: 40 mg Documented by: Hydromorphone HCl (Dilaudid Inj Carp) 1 mg IVP Q2H PRN PRN Reason: PAIN 8-10 Last Admin: 11/30/19 08:58 Dose: 1 mg Documented by: Lactated Ringer's (Lr) 1,000 mls @ 200 mls/hr IV .Q5H [facility] Last Admin: 11/30/19 10:33 Dose: 200 mls/hr Documented by: Ketorolac Tromethamine (Toradol Inj (30mg)) 30 mg IVP Q6HR PRN PRN Reason: PAIN Stop: 12/04/19 22:16 Last Admin: 11/30/19 03:37 Dose: 30 mg Documented by: Lorazepam (Ativan) 1 mg PO Q8H PRN PRN Reason: Anxiety Ondansetron HCl (Zofran Inj) 4 mg IVP Q6HR PRN PRN Reason: Nausea / Vomiting Oxycodone HCl (Roxicodone) 5 mg PO Q4HR PRN PRN Reason: Pain 5 to 7 Pantoprazole Sodium (Protonix) 40 mg IVP QDAC [facility] Last Admin: 11/30/19 07:07 Dose: 40 mg Documented by: Prednisone (Deltasone) 5 mg PO BIDWM [facility] Multivit/Folic Acid/Iron (Trinatal Rx 1) 1 tab PO DAILYWM [facility] Sodium Chloride (Normal Saline Flush 0.9%) 10 ml IVP PRN PRN PRN Reason: NEEDED PER PROVIDER ORDERS Sodium Chloride (Normal Saline Flush 0.9%) 10 ml IVP 0100,0900,1700 IVETTE Last Admin: 11/30/19 07:08 Dose: 10 ml Documented by: Adalimumab [Humira Pen] 40 mg SUBQ Q14D 11/30/19 metHOTREXate sodium [Methotrexate] 15 mg PO Q7D 11/30/19 predniSONE [Prednisone] 5 mg PO BID 11/30/19
[2019-11-30] MEDS: PRENATAL VITAMIN TABLET PO SCH (12:55)
[2019-11-30] MEDS: predniSONE 5 MG TABLET PO SCH (17:04)
[2019-11-30] MEDS: oxyCODONE 5 MG TABLET PO PRN (20:48)
[2019-11-30] MEDS: ACETAMINOPHEN 325 MG TABLET PO PRN (21:19)
[2019-12-01] MEDS: LACTATED RINGERS 1,000 ML IV SCH ×4 (02:19→18:36)
[2019-12-01] MEDS: SODIUM CHLORIDE FLUSH 0.9% 10 ML SYRINGE IVP SCH ×3 (03:39→17:05)
[2019-12-01] MEDS: HYDROmorphone 1 MG/ML CARPUJECT IVP PRN ×2 (04:56→15:59)
[2019-12-01 05:35] LABS: BASOPHILS % (AUTO) 0.4 %; EOSINOPHILS # (AUTO) 0.1 10^3/uL (0.0-0.7); EOSINOPHILS % (AUTO) 1.5 %; HGB - HEMOGLOBIN 10.8 g/dL (12.0-16.0); LYMPHOCYTES # (AUTO) 1.1 10^3/uL (1.5-3.5); LYMPHOCYTES % (AUTO) 11.8 %; MEAN CORPUSCULAR HEMOGLOBIN 30.3 pg (27.0-31.0); MEAN CORPUSCULAR HGB CONC 31.6 g/dL (32.0-36.0); MEAN CORPUSCULAR VOLUME 96.1 fL (81.0-99.0); MEAN PLATELET VOLUME 9.8 fL (7.9-10.8); MONOCYTES # (AUTO) 1.2 10^3/uL (0.0-1.0); MONOCYTES % (AUTO) 12.1 %; NEUTROPHILS % (AUTO) 73.8 %; PLT - PLATELET COUNT 279 10^3/uL (130-450); RED BLOOD COUNT 3.56 10^6/uL (4.20-5.40); RED CELL DISTRIBUTION WIDTH 18.4 % (12.0-15.0); WHITE BLOOD COUNT 9.6 x10^3/uL (4.8-10.8)
[2019-12-01 05:48] LABS: ALBUMIN 3.3 g/dL (3.2-5.5); ALBUMIN/GLOBULIN RATIO 1.5 (1.0-2.2); ALKALINE PHOSPHATASE 127 IU/L (42-121); ALT ALANINE AMINOTRANSFERASE 64 IU/L (10-60); AST ASPARTATE AMINOTRANSFERASE 48 IU/L (10-42); BILIRUBIN,TOTAL 0.8 mg/dL (0.2-1.0); BUN - BLOOD UREA NITROGEN < 5 mg/dL (6-20); CALCIUM 8.5 mg/dL (8.5-10.3); CARBON DIOXIDE - CO2 25 mmol/L (21-32); CHLORIDE 105 mmol/L (101-111); CREATININE 0.5 mg/dL (0.4-1.0); GLUCOSE 89 mg/dL (70-100); LIPASE 900 U/L (22-51); MAGNESIUM 1.9 mg/dL (1.7-2.8); PHOSPHORUS 3.6 mg/dL (2.5-4.6); SODIUM 139 mmol/L (135-145); TOTAL PROTEIN 5.5 g/dL (6.7-8.2)
[2019-12-01] MEDS: KETOROLAC 30 MG/ML VIAL IVP PRN (06:33)
[2019-12-01] MEDS: PANTOPRAZOLE 40 MG VIAL IVP SCH (06:33)
[2019-12-01] MEDS: predniSONE 5 MG TABLET PO SCH ×2 (08:17→17:05)
[2019-12-01] MEDS: PRENATAL VITAMIN TABLET PO SCH (08:17)
[2019-12-01] MEDS: ENOXAPARIN 40 MG/0.4 ML SYRINGE SUBQ SCH (08:19)
[2019-12-01] MEDS: SIMETHICONE CHEW 80 MG TABLET PO PRN ×2 (11:38→17:07)
[2019-12-01] MEDS: oxyCODONE 5 MG TABLET PO PRN (11:38)
[2019-12-01] MEDS: ACETAMINOPHEN 325 MG TABLET PO PRN (17:05)
--- NOTE | 2019-12-01 17:51 | Discharge Plan ---
Discharge Plan Problem Reviewed?: Yes Disposition: Home, Self Care Condition: Stable Prescriptions: Folic Acid 0.4 mg PO DAILY #15 tablet oxyCODONE [Roxicodone] 5 mg PO Q4-6H PRN #20 tablet PRN Reason: Pain Diet: Soft Activity Restrictions: Activity as Tolerated Shower Restrictions: No (fall precaution) Instruction Topics: Pancreatitis, Pancreatitis Acute Dc, Supplements Folic Acid Folate, Oxycodone tablets or capsules Health Concerns: pancreatitis Plan of Treatment: you tolerate regular diet without abdominal pain, nausea or vomiting. your lipase is down to 81. Advise you continue cessation of your alcohol input. Care Goals: stabilization and improvement/resolve of your medical conditions. Assessment: discussed with you the care plan, you understood. Additional Instructions or Follow Up instructions: you may followup your PCP in one to two weeks, followup gate keeper as outpatient. Should your symptoms return or worsen, you may present ER or call 911 for help. No Smoking: If you smoke, Please STOP! Call for help.
--- NOTE | 2019-12-01 18:06 | DISCHARGE SUMMARY ---
Discharge Summary Admit Date: 11/29/19 Discharge Date: 12/01/19 Discharging Provider: Immanuel andino Condition at Discharge: Stable Discharge Disposition: 01 Home, Self Care Discharge Facility Name: home - DIAGNOSES Discharge Diagnoses with Status of Each Condition: (1) Acute pancreatitis resolved. Patient's lipase is down to 81, patient has no abdominal pain, patient tolerated regular diet without nausea or vomiting. Patient has history of RA and patient also has a history of alcohol abuse although pt denies she recently had alcohol. The etiology is not clear. Encourage patient continue quit alcohol. Advised the patient follow-up with tool grinder operator external For further management. (2) Rheumatoid arthritis Stable, resume home medication, patient is a prescribed folic acid.Patient has home medication methotrexate. (3) History of alcohol abuse Advised the patient continue quit alcohol. - [facility] History of Present Illness: refer from Dr. sutton's HPI on 11/29/2019 This is a 49-year-old female with a past medical history significant for rheumatoid arthritis who presents today complaining of acute onset epigastric pain. She reports she ate some stirfry around 4 PM and about an hour or 2 later she felt some mild epigastric pain. This became quite severe within 30 minutes. She had associated nausea and nonbloody emesis. The pain was quite severe and nonradiating. It is alleviated with IV Dilaudid. She reports no fevers, chills, chest pain, dyspnea, diarrhea. She reports no similar symptoms in the past. She states she does have a history of on and off alcohol use but she has not drank alcohol since August. She reports no prior history of cholelithiasis to her knowledge. She does take methotrexate, Humira, prednisone for rheumatoid arthritis. She is due for her next dose of Humira tomorrow. She reports she was just contacted by her sewing techniques demonstrator to decrease her methotrexate dose to 12.5 mg weekly as her liver function tests were slightly elevated. In the emergency department, her labs were significant for a lipase over 4000. A CT of the abdomen pelvis was obtained which was consistent with acute pancreatitis. No obvious cholelithiasis or ductal dilation was present on imaging. She was given antiemetics and IV Dilaudid and Toradol for pain control. Given these findings, medicine was consulted for admission. - HOSPITAL COURSE Hospital Course: Patient was admitted for abdominal pain.Patient was found to have a pancreatitis. CAT scan of abdomen show acute pancreatitis, patient's lipase is over 4000. Patient was treated with bowel rest and intravenous IV fluids, and seed laboratory assistant. After the treatment, patient's lipase down to 81, patient has no more abdominal pain. Patient tolerated regular diet without nausea or vomiting. pt's US of abdomen reveals unremarkable. - ALLERGIES Allergies/Adverse Reactions: Allergies Allergy/AdvReac Type Severity Reaction Status Date / Time No Known Drug Allergies Allergy Verified 11/29/19 19:43 - MEDICATIONS Home Medications: Ambulatory Orders Medication Instructions Recorded Confirmed Adalimumab [Humira Pen] 40 mg SUBQ Q14D 11/30/19 11/30/19 metHOTREXate sodium [Methotrexate] 15 mg PO Q7D 11/30/19 11/30/19 predniSONE [Prednisone] 5 mg PO BID 11/30/19 11/30/19 Folic Acid 0.4 mg PO DAILY #15 tablet 12/01/19 oxyCODONE [Roxicodone] 5 mg PO Q4-6H PRN #20 tablet 12/01/19 - PHYSICAL EXAM AT DISCHARGE General Appearance: positive: No acute distress, Alert. negative: Lethargic Eyes Bilateral: positive: Normal inspection, PERRL, No lid inflammation ENT: positive: ENT inspection nml, Pharynx nml, No signs of dehydration. negative: Purulent nasal drainage Neck: positive: Nml inspection, Thyroid nml, No JVD, Trachea midline. negative: Thyromegaly, Stiff neck, Tracheal deviation Respiratory: positive: Chest non-tender, No respiratory distress, Breath sounds nml. negative: Wheezes, Rales, Rhonchi Cardiovascular: positive: Regular rate & rhythm, No murmur, No gallop. negative: Irregularly irregular, Tachycardia, Bradycardia, Systolic murmur, Diastolic murmur Peripheral Pulses: positive: 2+ Abdomen: positive: Non-tender, No organomegaly, Nml bowel sounds, No distention. negative: Tenderness, Guarding, Rebound Back: positive: Nml inspection. negative: CVA tenderness (R), CVA tenderness (L) Skin: positive: Color nml, No rash, Warm, Dry. negative: Cyanosis, Diaphoresis, Pallor Extremities: positive: Non-tender, Full ROM, Nml appearance. negative: Calf tenderness, Rusty's sign/cords Neurologic/Psychiatric: positive: Oriented x3, Motor nml, Sensation nml. negative: Weakness, Sensory loss, Facial droop, Slurred/abnml speech, Depressed mood/affect - LABS Result Diagrams: 12/01/19 04:45 12/01/19 04:45 - DIAGNOSTIC IMAGING Diagnostic Imaging Results Comments: CT of abdomen Show acute pancreatitis. Ultrasound of abdomen show unremarkable - SEPSIS Current Stage of Sepsis: Ruled out - FOLLOW UP Follow Up: you tolerate regular diet without abdominal pain, nausea or vomiting. your lipase is down to 81. Advise you continue cessation of your alcohol input. you may followup your PCP in one to two weeks, followup tool grinder operator external as outpatient. Should your symptoms return or worsen, you may present ER or call 911 for help. - TIME SPENT Time Spent in Discharge (Minutes): 30
[2019-12-01 18:45] VITALS: BP 127/71
== END 2019-12-01 18:50 | disposition home or self-care (01) | DRG 440 ==
LOC: EDUNIT# → ED 19:36 → MS2 22:15
PROVIDERS: ADMIT Internal Medicine; ATTEND Internal Medicine Hematology & Oncology
DX: K85.90 Acute pancreatitis without necrosis or infection, unspecified (principal); M06.9 Rheumatoid arthritis, unspecified; F10.11 Alcohol abuse, in remission; Z79.899 Other long term (current) drug therapy; Z72.0 Tobacco use; Z79.52 Long term (current) use of systemic steroids
CPT/HCPCS: 36415; 74177; 76700; 80048; 80053; 80061; 80320; 83690; 83735; 84100; 85025; 86038; 96361; 96374; 96375; 99284; 99285; A9270; J1170; J1650; J7040; J7120; J7512; Q9967; 83721

== ENCOUNTER 2021-02-28 13:14 | Outpatient (CLI) | payer MEDICAID ==
--- NOTE | 2021-02-28 13:40 | XRAY Report ---
PROCEDURE: Toe(s) RT INDICATIONS: TOE PAIN, RIGHT TECHNIQUE: 3 views of the the toe(s) acquired. One of these includes the entire foot. COMPARISON: None FINDINGS: Bones: No fractures or dislocations. Involving the fifth toe. No suspicious bony lesions. Hallux v algus, bunion, first MTP degenerative change. Soft tissues: No suspicious soft tissue densities. IMPRESSION: 1. No evidence acute bony abnormality of the right fifth toe. 2. Hallux valgus, bunion, first MTP degenerative change. Reviewed by: Enedr Nicolas MD on 02/28/2021 1:38 PM PDT Approved by: Ender Nicolas MD on 02/28/2021 1:38 PM PDT Station ID: [id number]
== END 2021-02-28 23:59 | disposition home or self-care (01) ==
LOC: DI.S 13:14
PROVIDERS: ATTEND Physician Assistant Medical
DX: M79.674 Pain in right toe(s) (principal); M19.071 Primary osteoarthritis, right ankle and foot; M20.11 Hallux valgus (acquired), right foot; M21.611 Bunion of right foot

== ENCOUNTER 2021-10-19 08:00 | Outpatient (CLI) | payer MEDICAID | END 2021-10-19 23:59 | disposition home or self-care (01) | LOC: LAB.S 08:00 | PROVIDERS: ATTEND Physician Assistant | DX: R10.9 Unspecified abdominal pain (principal) | CPT/HCPCS: 87086; 87181 ==

== ENCOUNTER 2022-10-06 12:41 | Outpatient (CLI) | payer MEDICAID ==
[2022-10-06 15:32] LABS: BASOPHILS % (AUTO) 0.7 %; EOSINOPHILS # (AUTO) 0.3 10^3/uL (0.0-0.7); EOSINOPHILS % (AUTO) 4.2 %; HCT - HEMATOCRIT 41.7 % (37.0-47.0); HGB - HEMOGLOBIN 13.3 g/dL (12.0-16.0); LYMPHOCYTES # (AUTO) 1.9 10^3/uL (1.5-3.5); MEAN CORPUSCULAR HEMOGLOBIN 28.9 pg (27.0-31.0); MEAN CORPUSCULAR HGB CONC 31.9 g/dL (32.0-36.0); MEAN CORPUSCULAR VOLUME 90.5 fL (81.0-99.0); MEAN PLATELET VOLUME 10.3 fL (7.9-10.8); MONOCYTES # (AUTO) 0.6 10^3/uL (0.0-1.0); MONOCYTES % (AUTO) 10.7 %; NEUTROPHILS # (AUTO) 3.2 10^3/uL (1.5-6.6); NEUTROPHILS % (AUTO) 53.2 %; PLT - PLATELET COUNT 258 10^3/uL (130-450); RED BLOOD COUNT 4.61 10^6/uL (4.20-5.40); RED CELL DISTRIBUTION WIDTH 14.8 % (12.0-15.0)
[2022-10-06 17:04] LABS: ALBUMIN 3.9 g/dL (3.2-5.5); ALBUMIN/GLOBULIN RATIO 1.3 (1.0-2.2); BILIRUBIN,TOTAL 0.6 mg/dL (0.2-1.0); CALCIUM 9.5 mg/dL (8.5-10.3); CREATININE 0.6 mg/dL (0.4-1.0); POTASSIUM 3.9 mmol/L (3.5-5.0); TOTAL PROTEIN 6.9 g/dL (6.7-8.2)
== END 2022-10-06 12:42 | disposition home or self-care (01) ==
LOC: LAB.S 12:41
PROVIDERS: ATTEND Internal Medicine Rheumatology
DX: M05.79 Rheumatoid arthritis with rheumatoid factor of multiple sites without organ or systems involvement (principal); Z79.899 Other long term (current) drug therapy
CPT/HCPCS: 36415; 80053; 85025; 86140

== ENCOUNTER 2022-12-28 08:00 | Outpatient (CLI) | payer OTHER, MEDICAID | END 2022-12-28 23:59 | disposition home or self-care (01) | LOC: LAB.S 08:00 | PROVIDERS: ATTEND Physician Assistant | DX: L02.91 Cutaneous abscess, unspecified (principal) | CPT/HCPCS: 87070; 87077; 87205 ==

== ENCOUNTER 2023-04-06 14:50 | Outpatient (CLI) | payer OTHER, MEDICAID ==
[2023-04-06 20:16] LABS: BASOPHILS # (AUTO) 0.1 10^3/uL (0.0-0.1); BASOPHILS % (AUTO) 0.9 %; EOSINOPHILS # (AUTO) 0.1 10^3/uL (0.0-0.7); EOSINOPHILS % (AUTO) 1.8 %; HGB - HEMOGLOBIN 12.1 g/dL (12.0-16.0); LYMPHOCYTES # (AUTO) 2.5 10^3/uL (1.5-3.5); MEAN CORPUSCULAR HEMOGLOBIN 30.4 pg (27.0-31.0); MEAN CORPUSCULAR HGB CONC 32.7 g/dL (32.0-36.0); MEAN PLATELET VOLUME 9.7 fL (7.9-10.8); MONOCYTES # (AUTO) 0.8 10^3/uL (0.0-1.0); MONOCYTES % (AUTO) 13.6 %; NEUTROPHILS # (AUTO) 2.2 10^3/uL (1.5-6.6); NEUTROPHILS % (AUTO) 39.3 %; PLT - PLATELET COUNT 217 10^3/uL (130-450); RED BLOOD COUNT 3.98 10^6/uL (4.20-5.40); RED CELL DISTRIBUTION WIDTH 13.2 % (12.0-15.0); WHITE BLOOD COUNT 5.7 x10^3/uL (4.8-10.8)
[2023-04-06 20:32] LABS: ALBUMIN 4.2 g/dL (3.2-5.5); ALBUMIN/GLOBULIN RATIO 1.9 (1.0-2.2); BILIRUBIN,TOTAL 0.4 mg/dL (0.2-1.0); CALCIUM 9.5 mg/dL (8.5-10.3); CREATININE 0.6 mg/dL (0.6-1.3); CRP - C-REACTIVE PROTEIN 0.6 mg/dL (<0.5); POTASSIUM 3.5 mmol/L (3.5-4.5); TOTAL PROTEIN 6.4 g/dL (6.4-8.9)
== END 2023-04-06 14:51 | disposition home or self-care (01) ==
LOC: LAB.S 14:50
PROVIDERS: ATTEND Internal Medicine Rheumatology
DX: Z79.899 Other long term (current) drug therapy (principal)
CPT/HCPCS: 36415; 80053; 85025; 86140

== ENCOUNTER 2023-10-11 14:20 | Outpatient (CLI) | payer OTHER ==
--- NOTE | 2023-10-11 17:01 | XRAY Report ---
PROCEDURE: Hand 1-2V RT INDICATIONS: RHEUMATIOD ARTHRITIS TECHNIQUE: 2 views of the hand(s) acquired. COMPARISON: None. FINDINGS: Bones: No fractures or dislocations. No suspicious bony lesions. Periarticular osteopenia. Soft tissues: No suspicious soft tissue calcifications or masses. IMPRESSION: Periarticular osteopenia. Reviewed by: Eric Cazares MD on 10/11/2023 5:00 PM PDT Approved by: Eric Cazares MD on 10/11/2023 5:00 PM PDT Station ID: [id number]
--- NOTE | 2023-10-11 17:01 | XRAY Report ---
PROCEDURE: Hand 1-2V LT INDICATIONS: RHEUMATIOD ARTHRITIS TECHNIQUE: 3 views of the hand(s) acquired. COMPARISON: None. FINDINGS: Bones: No fractures or dislocations. No suspicious bony lesions. Periarticular osteopenia. Radioc arpal and ulnocarpal joint space narrowing with osteophytosis. Soft tissues: No suspicious soft tissue calcifications or masses. IMPRESSION: Periarticular osteopenia. Wrist osteoarthritis. Reviewed by: Eric Cazares MD on 10/11/2023 5:00 PM PDT Approved by: Eric Cazares MD on 10/11/2023 5:00 PM PDT Station ID: [id number]
--- NOTE | 2023-10-11 17:02 | XRAY Report ---
PROCEDURE: Foot 3+V LT INDICATIONS: RHEUMATIOD ARTHRITIS TECHNIQUE: 3 views of the foot were acquired. COMPARISON: None. FINDINGS: Bones: No fractures or dislocations. No suspicious bony lesions. Mild hallux valgus. Soft tissues: No tibiotalar joint effusion. Achilles tendon appears normal. IMPRESSION: Mild hallux valgus. Reviewed by: Eric Cazares MD on 10/11/2023 5:01 PM PDT Approved by: Eric Cazares MD on 10/11/2023 5:01 PM PDT Station ID: [id number]
--- NOTE | 2023-10-11 17:03 | XRAY Report ---
PROCEDURE: Foot 3+V RT INDICATIONS: RHEUMATIOD ARTHRITIS TECHNIQUE: 3 views of the foot were acquired. COMPARISON: None. FINDINGS: Bones: No fractures or dislocations. No suspicious bony lesions. Hallux valgus with bone callus fo rmation. Soft tissues: No tibiotalar joint effusion. Achilles tendon appears normal. IMPRESSION: Hallux valgus with bone callus formation. Reviewed by: Eric Cazares MD on 10/11/2023 5:01 PM PDT Approved by: Eric Cazares MD on 10/11/2023 5:01 PM PDT Station ID: [id number]
[2023-10-11 19:50] LABS: BASOPHILS # (AUTO) 0.1 10^3/uL (0.0-0.1); BASOPHILS % (AUTO) 0.7 %; EOSINOPHILS # (AUTO) 0.1 10^3/uL (0.0-0.7); EOSINOPHILS % (AUTO) 0.8 %; HCT - HEMATOCRIT 42.7 % (37.0-47.0); HGB - HEMOGLOBIN 13.7 g/dL (12.0-16.0); LYMPHOCYTES # (AUTO) 2.4 10^3/uL (1.5-3.5); LYMPHOCYTES % (AUTO) 31.9 %; MEAN CORPUSCULAR HEMOGLOBIN 30.3 pg (27.0-31.0); MEAN CORPUSCULAR HGB CONC 32.1 g/dL (32.0-36.0); MEAN CORPUSCULAR VOLUME 94.5 fL (81.0-99.0); MEAN PLATELET VOLUME 9.5 fL (7.9-10.8); MONOCYTES # (AUTO) 0.8 10^3/uL (0.0-1.0); MONOCYTES % (AUTO) 10.1 %; NEUTROPHILS # (AUTO) 4.3 10^3/uL (1.5-6.6); NEUTROPHILS % (AUTO) 56.2 %; PLT - PLATELET COUNT 285 10^3/uL (130-450); RED BLOOD COUNT 4.52 10^6/uL (4.20-5.40); RED CELL DISTRIBUTION WIDTH 13.5 % (12.0-15.0); WHITE BLOOD COUNT 7.6 x10^3/uL (4.8-10.8)
== END 2023-10-11 14:21 | disposition home or self-care (01) ==
LOC: LAB.S 14:20 → DI.S 14:21
PROVIDERS: ATTEND Internal Medicine Rheumatology
DX: M85.841 Other specified disorders of bone density and structure, right hand (principal); M85.842 Other specified disorders of bone density and structure, left hand; M19.032 Primary osteoarthritis, left wrist; M20.12 Hallux valgus (acquired), left foot; M06.9 Rheumatoid arthritis, unspecified; Z79.899 Other long term (current) drug therapy
CPT/HCPCS: 36415; 85025